=== PATIENT | male | born 1970 | race Caucasian/White ===

== ENCOUNTER 2016-11-19 16:39 | Inpatient (IN) | payer BC, MEDICARE ==
[2016-11-19] MEDS ORDERED: Nitroglycerin TAB 0.4 MG* 0.4 MG TAB SL PRN (18:20)
[2016-11-19] MEDS ORDERED: Morphine INJ* 4 MG/ML 1 ML SYRINGE IV ONE (18:20)
[2016-11-19] MEDS ORDERED: NS 0.9% 1000 ML* 1,000 ML IV ONE (18:20)
[2016-11-19] MEDS ORDERED: Labetalol IV* 5 MG/ML 20 ML VIAL IV PUSH ONE (18:20)
[2016-11-19] MEDS ORDERED: Labetalol IV* 5 MG/ML 20 ML VIAL ONE (18:25)
[2016-11-19 18:37] LABS: Hematocrit 53 % (42-52); Hemoglobin 17.9 g/dl (14.0-18.0); Mean Corpuscular HGB Conc 34 g/dl (31-36); Mean Corpuscular Hemoglobin 29 pg (27-31); Mean Corpuscular Volume 86 fL (80-94); Mean Platelet Volume 11 um3 (7.4-10.4); Red Blood Count 6.14 10^6/ul (4.0-5.4); Red Cell Distribution Width 14 % (10.5-15); White Blood Count 13.2 10^3/ul (3.5-10.8)
[2016-11-19 18:45] LABS: BUN/Creatinine Ratio 7.4 (8-20); Calcium 9.5 mg/dL (8.6-10.3); EGFR African American 93.9 (>60); Globulin 3.1 g/dL (2-4); Magnesium 2.1 mg/dL (1.9-2.7); Potassium 4.1 mmol/L (3.5-5.0); Total Bilirubin 0.7 mg/dL (0.2-1.0); Total Protein 8.1 g/dL (6.4-8.9)
[2016-11-19 18:47] LABS: Troponin I 0.01 ng/mL (<0.04)
[2016-11-19] MEDS ORDERED: Iohexol 350* (CONTRAST) 500 ML MDV IV ONE ×2 (18:51→18:58)
[2016-11-19 18:57] LABS: T4 5.75 mcg/mL (6.09-12.23)
[2016-11-19 18:58] LABS: TSH (Thyroid Stimulating Horm) 1.55 mcIU/mL (0.34-5.60)
--- NOTE | 2016-11-19 19:35 | RAD ---
Indication: Chest pain, hypertension. Single frontal view of the chest performed at 1835 hours was reviewed. Comparison is made with previous exam dated January 04, 2013. No mediastinal shift is noted. Heart is of normal size and configuration. Lung randall appear clear.] Neurostimulator leads are in place. IMPRESSION: NO ACTIVE CARDIOPULMONARY DISEASE IS NOTED.
[2016-11-19] MEDS ORDERED: hydrALAZINE IV* 20 MG/ML VIAL IV SLOW PU ONE ×3 (19:51→23:15)
[2016-11-19] MEDS ORDERED: hydrALAZINE IV* 20 MG/ML VIAL ONE (19:52)
--- NOTE | 2016-11-19 20:13 | RAD ---
Indication: Hypertension, headache. CT of the brain was performed without IV contrast. Ventricular structures are midline. No midline shift is noted. The extra-axial spaces are unremarkable. There is no evidence of intracranial mass or hemorrhage. No other high or low density lesions are identified. Mastoid air cells and paranasal sinuses are otherwise unremarkable. IMPRESSION: No intracranial mass or hemorrhage is present
--- NOTE | 2016-11-19 20:26 | RAD ---
Indication: Headaches, hypertension, evaluate for hemorrhage and aneurysm. Contrast: Administered 80.0 ml of OMNIPAQUE 350 mgi/ml CTA of the neck was performed after IV contrast administration. CTA of the head was performed. Coronal and sagittal as well as 3-D reconstructed images were obtained. There is mild distention of the ascending aorta. Origins of the great vessels are unremarkable. Tortuous common carotid arteries are noted bilaterally. No evidence of intimal wall thickening. The internal carotid arteries are normal bilaterally. No evidence of carotid artery dissection noted. The vertebral arteries demonstrate no evidence for vertebral artery dissection. Basilar artery is unremarkable. Intracranial circulation demonstrates no aneurysmal dilatation. Normal bifurcation of the middle and anterior screw artery is noted. The trifurcation of the middle cerebral artery are also intact with no evidence of aneurysmal dilatation. Basilar artery and posterior cerebral arteries are unremarkable. Soft tissues of the neck demonstrates scattered level 2 lymph nodes bilaterally. No other masses are noted. The parotid glands and submandibular glands are grossly unremarkable. Inferior thyroid lobes are unremarkable. The lung apices are unremarkable. Degenerative disc disease is noted in the cervical spine at C5-C6 and C6-C7. IMPRESSION: NO EVIDENCE OF CAROTID ARTERY OR VERTEBRAL ARTERY DISSECTION. INTRACRANIAL CIRCULATION DEMONSTRATES NO EVIDENCE OF BRANCH OCCLUSION OR ANEURYSMAL DILATATION. DEGENERATIVE DISC DISEASE OF THE CERVICAL SPINE IS NOTED WITH SCATTERED LEVEL 2 LYMPH NODES.
--- NOTE | 2016-11-19 20:31 | RAD ---
Indication: Evaluate for thoracic abdominal aortic aneurysm. CTA chest demonstrates asymmetry aorta demonstrates mild ectasia with maximum diameter descending aorta measuring 4.3 cm by 4.2 cm. At the level of the pulmonary artery on the right. No evidence of thoracic aortic dissection. No evidence of hilar adenopathy. Inferior thyroid lobes are unremarkable The trachea and major bronchi are patent. No evidence of fluid, nodules or masses. No evidence of alveolar consolidation CTA of the abdominal aorta demonstrates celiac axis and superior mesenteric artery are unremarkable. Renal arteries are patent bilaterally. No evidence of abdominal aortic aneurysm. Common iliac arteries are patent with no evidence of aneurysmal dilatation. IMPRESSION: NO EVIDENCE OF THORACIC AORTIC ANEURYSM IS NOTED. NO EVIDENCE OF THORACIC AORTIC DISSECTION IS NOTED. THERE IS DILATATION OF THE ASCENDING AORTA MEASURING 4.3 X 4.2 CM AT THE LEVEL OF THE RIGHT PULMONARY ARTERY. NO EVIDENCE OF ABDOMINAL AORTIC ANEURYSM,
--- NOTE | 2016-11-19 20:42 | RAD ---
Indication: Crohn's disease, abdominal pain., Contrast: CT of the abdomen and pelvis was performed after IV contrast administration. Coronal and sagittal reconstructed images were obtained. Lung bases demonstrate no pleural fluid, nodules or masses. Heart is of normal size without evidence of pericardial effusion. The liver is normal in size. It is diffusely decreased in density consistent with hepatic steatosis. The gallbladder demonstrates no calcified gallstones. No evidence of wall thickening or pericholecystic fluid or calcified gallstones are identified. Common duct is not dilated. The pancreas demonstrates no mass or pancreatic duct dilatation. The spleen is mildly enlarged measuring up to 14 cm. No adrenal lesions are noted. The kidneys demonstrate symmetric nephrograms without focal masses or hydronephrosis. Aorta and inferior vena cava are unremarkable. CT of the pelvis demonstrates no retroperitoneal or pelvic lymphadenopathy. The colon is filled with stool. Patient is status post right hemicolectomy. Surgical clips are noted in the region of the hepatic flexure. Focal areas of small bowel thickening is noted in the left lower quadrant which are nonspecific. I cannot totally exclude recurrent disease. IMPRESSION: HEPATIC STEATOSIS. POSTOPERATIVE CHANGES OF THE RIGHT COLON. FOCAL AREAS OF MUCOSAL THICKENING IN THE LEFT LOWER QUADRANT IN THE LEFT MID ABDOMEN WHICH IS NONSPECIFIC. I CANNOT TOTALLY EXCLUDE AREAS OF INFLAMMATORY BOWEL DISEASE. MILD SPLENOMEGALY IS PRESENT.
[2016-11-19] MEDS ORDERED: cloNIDine TAB* 0.1 MG PO ONE (20:52)
[2016-11-19] MEDS ORDERED: Morphine INJ* 2 MG/ML 1 ML SYRINGE IV ONE (21:35)
[2016-11-19] MEDS ORDERED: fentaNYL PATCH 25 MCG/HR TRANSDERM SCH (23:45)
[2016-11-20] MEDS: oxyCODONE/Acetamin 5/325 MG* TAB PO PRN ×5 (02:03→22:04)
--- NOTE | 2016-11-20 02:05 | HP ---
HISTORY AND PHYSICAL: DATE OF ADMISSION: 11/19/16 CHIEF COMPLAINT: Pain. HISTORY OF PRESENT ILLNESS: The patient is a 46-year-old gentleman who suffers from chronic pain and was on fentanyl patches up until not too long ago, who presents today with diffuse pain all over. He also has pain in his abdomen. It goes to his back, and he was concerned he might have recurrence of pancreatitis. He has had to taper off his pain meds over the last month because he recently lost his 's insurance as he is getting from her. He also feels like this pain in the back of his neck with some swollen lymph nodes there as well. He has been feeling weak of late. Also has some black tarry stools he noted but today they were normal color, but they were diarrhea. Of note, he came to the ER with a very high blood pressure and diastolics in the 140s. He did receive labetalol and hydralazine and it has come down to some degree. PAST MEDICAL HISTORY: Significant for Crohn's disease for which he is not currently receiving any medication, but used to be on Remicade and Pentasa on and off for years. Hypertension, recurrent pancreatitis, reflex sympathetic dystrophy. PAST SURGICAL HISTORY: Significant for appendectomy and shoulder surgery. CURRENT MEDICATIONS: He is taking none. ALLERGIES: He has an allergy/adverse reaction to Toradol and Compazine. FAMILY HISTORY: Reviewed, noncontributory. SOCIAL HISTORY: No tobacco, no alcohol, no recreational drug use. He is on disability. His sister, Cristofer Mendez, is his healthcare proxy. REVIEW OF SYSTEMS: A 14-point review of systems was completed with the patient. All pertinent positives and negatives are in the history of present illness, otherwise it is negative. PHYSICAL EXAMINATION GENERAL: A pleasant gentleman, lying in bed, in no acute distress. VITAL SIGNS: Heart rate 111 beats per minute, respiratory rate 12 breaths per minute, pulse ox 97%, blood pressure 135/122, temperature 99.1 degrees. HEENT: Normocephalic, atraumatic. Pupils equal, round, and reactive to light. Moist mucous membranes. NECK: Supple. No JVD, bruits, palpable thyroid, or lymphadenopathy. CHEST: Clear to auscultation and percussion bilaterally. CARDIOVASCULAR: S1, S2 appreciated. Regular rate and rhythm. ABDOMEN: Positive bowel sounds in all 4 quadrants. Soft, nontender, nondistended. EXTREMITIES: No cyanosis, clubbing, or edema. +2 peripheral pulses bilaterally. NEURO: Alert and oriented x3. Moves all extremities. SKIN: No rashes or abnormalities. DIAGNOSTIC STUDIES/LAB DATA: White count 13.2, hemoglobin , hematocrit 53 , platelets are 230. Sodium 136, potassium 4.1, chloride 103, CO2 22. BUN 8, creatinine 1.08, glucose is 107. D-dimer is less than 200. Brain CT, no intracranial mass or hemorrhage is present. Head CTA, no evidence of carotid artery or vertebral artery dissection. Intracranial circulation demonstrates no evidence of branch occlusion or aneurysmal dilation. Degenerative disk disease of the cervical spine is noted with scattered level [address] of the chest, abdomen and pelvis, no evidence of thoracic aortic aneurysms noted. No evidence of thoracic aortic dissection is noted. There is dilatation of the descending aorta measuring 4.3 x 4.2 , no evidence of abdominal aortic aneurysm. Chest x-ray was interpreted as no active cardiopulmonary disease is noted. EKG shows sinus tachycardia, 136 beats per minute, normal axis, no acute ST-T wave changes. Abdominal pelvic CT shows hepatic steatosis, postoperative changes of the right colon, focal areas of mucosal thickened left lower quadrant of left abdomen, which was not significant and cannot exclude areas of inflammatory bowel disease , mild splenomegaly is present. ASSESSMENT AND PLAN: 1. Diffuse pain including some abdominal pain. I will check a lipase, but I do not think he has pancreatitis at this time. He has been off his chronic pain meds. I will just start him back on some fentanyl patch 25 mcg and Percocet p.r.n. and see if this helps. 2. Hypertensive urgency. His diastolic was quite high. It is better. I will start him on amlodipine, lisinopril p.o., hydralazine p.r.n. and she will be discharged on some p.o. antihypertensives. 3. Crohn's disease. Quiescent. No treatment as of now. Monitor. 4. FEN. Regular diet. 5. DVT prophylaxis. Heparin subcu. 6. The patient is a full code. TIME SPENT: Over 75 minutes were spent on this H and P, more than 40 minutes of which was spent in direct [id number] contact with the patient in evaluation , physical exam, counseling and coordination of care. [id number]/[facility] #: [id number] [place]YR[place]
--- NOTE | 2016-11-20 02:08 | ED ---
Tomas Pop Adam, scribed for Vance Nevarez on 11/19/16 at 1955 . Progress - Progress Note Progress Note: This patient was signed out to me by Dr. Marin at 19:00, pending results of Head CTA, Brain CT, Chest/Abdomen/Pelvis CTA, Abdomen/Pelvis CT, and Chest X- Ray. CHEST X-RAY - IMPRESSION: NO ACTIVE CARDIOPULMONARY DISEASE IS NOTED. HEAD CTA - IMPRESSION: NO EVIDENCE OF CAROTID ARTERY OR VERTEBRAL ARTERY DISSECTION. INTRACRANIAL CIRCULATION DEMONSTRATES NO EVIDENCE OF BRANCH OCCLUSION OR ANEURYSMAL DILATATION. DEGENERATIVE DISC DISEASE OF THE CERVICAL SPINE IS NOTED WITH SCATTERED LEVEL [address] - IMPRESSION: NO INTRACRANIAL MASS OR HEMORRHAGE IS PRESENT. CHEST/ABDOMEN/PELVIS CTA - IMPRESSION: NO EVIDENCE OF THORACIC AORTIC ANEURYSM IS NOTED. NO EVIDENCE OF THORACIC AORTIC DISSECTION IS NOTED. THERE IS DILATATION OF THE ASCENDING AORTA MEASURING 4.3 X 4.2 CM AT THE LEVEL OF THE RIGHT PULMONARY ARTERY. NO EVIDENCE OF ABDOMINAL AORTIC ANEURYSM ABDOMEN/PELVIS CT - IMPRESSION: HEPATIC STEATOSIS. POSTOPERATIVE CHANGES OF THE RIGHT COLON. FOCAL AREAS OF MUCOSAL THICKENING IN THE LEFT LOWER QUADRANT IN THE LEFT MID ABDOMEN WHICH IS NONSPECIFIC. I CANNOT TOTALLY EXCLUDE AREAS OF INFLAMMATORY BOWEL DISEASE. MILD SPLENOMEGALY IS PRESENT. Patient was given IV hydralazine x 2 and his BP is still elevated. I discussed care of patient with Dr. Coronel at approximately 20:30. He accepts admission of the patient. Course/Dx - Diagnoses Provider Diagnoses: Malignant hypertension - Critical Care Time Critical Care Time: 30-74 min - 30 minutes The documentation as recorded by the Tomas wren Adam accurately reflects the service I personally performed and the decisions made by me, Vance Nevarez.
[2016-11-20] MEDS: Lisinopril TAB* 10 MG PO SCH ×2 (02:43→15:08)
[2016-11-20] MEDS: amLODIPine TAB* 5 MG PO SCH ×2 (02:43→15:07)
[2016-11-20] MEDS: Heparin VIAL(*) 5000 UNITS/ML VIAL (FIVE THOUSAND) SUBCUT SCH ×3 (05:58→21:29)
[2016-11-20] MEDS: fentaNYL Patch Check Q Shift 1 NOTE SCH ×2 (07:26→19:20)
[2016-11-20] MEDS ORDERED: NS 0.9% 1000 ML* 1,000 ML IV SCH (14:00)
--- NOTE | 2016-11-20 14:26 | PN ---
Subjective Date of Service: 11/20/16 Interval History: Mr. Venegas reports multiple complaints today - he feels "a little better today" but continues to c/o of abdominal pain, upper chest wall pain worse when he takes a deep breath, neck pain reporting "swollen lymph nodes" Mild sore throat. No rhinorrhea or nasal congestion. He reports his skin over his abdomen is "super sensitive" which is his baseline. He reports "sweats at night" for the past 4 days but no chills or fevers. He reports he had a UTI last month with blood in his urine and burning with urination, but was never tested or treated for it because he couldn't afford to be seen or be put on medications, reporting he drank lots of cranberry juice and water and it went away. He also reports 3-4 stools a day both formed and diarrhea which is his baseline. He reports no stool today. No specific abdominal pain. Reports good appetite but he "could feel the food moving through me" reporting discomfort. He denies fever, nausea or vomiting. No dysuria or hematuria. Objective Active Medications: Amlodipine Besylate (Norvasc Tab*) 5 mg PO DAILY COUNT INCLUDES THE [facility] Last Admin: 11/20/16 02:43 Dose: 5 mg Fentanyl (Duragesic Patch 25 Mcg/Hr*) 25 mcg TRANSDERM Q72H COUNT INCLUDES THE [facility] Last Admin: 11/20/16 02:35 Dose: 25 mcg Heparin Sodium (Porcine) (Heparin Vial(*)) 5,000 units SUBCUT Q8HR COUNT INCLUDES THE [facility] Last Admin: 11/20/16 05:58 Dose: 5,000 units Sodium Chloride (Ns 0.9% 1000 Ml*) 1,000 mls @ 125 mls/hr IV PER RATE COUNT INCLUDES THE [facility] Stop: 11/20/16 21:59 Lisinopril (Prinivil Tab*) 10 mg PO DAILY COUNT INCLUDES THE [facility] Last Admin: 11/20/16 02:43 Dose: 10 mg Oxycodone/Acetaminophen (Percocet 5/325 Tab*) 1 tab PO Q4H PRN PRN Reason: PAIN Last Admin: 11/20/16 10:55 Dose: 1 tab Pharmacy Profile Note (Fentanyl Patch Check Q Shift) 1 note N/A 0700,1900 COUNT INCLUDES THE [facility] Last Admin: 11/20/16 07:26 Dose: 1 note Vital Signs 11/20/16 11/20/16 11/20/16 00:00 00:01 00:21 Temperature Pulse Rate 103 104 101 Respiratory 15 14 19 Rate Blood Pressure 127/88 125/96 (mmHg) O2 Sat by Pulse 96 97 96 Oximetry 11/20/16 11/20/16 11/20/16 00:30 01:48 01:55 Temperature 98.4 F 98.4 F Pulse Rate 100 93 93 Respiratory 18 16 16 Rate Blood Pressure 127/83 144/96 144/96 (mmHg) O2 Sat by Pulse 96 98 98 Oximetry 11/20/16 11/20/16 11/20/16 02:03 02:35 03:25 Temperature Pulse Rate Respiratory 16 16 16 Rate Blood Pressure (mmHg) O2 Sat by Pulse Oximetry 11/20/16 11/20/16 11/20/16 04:03 04:13 06:07 Temperature 98.8 F Pulse Rate 113 Respiratory 16 16 16 Rate Blood Pressure 126/98 (mmHg) O2 Sat by Pulse 97 Oximetry 11/20/16 11/20/16 11/20/16 06:11 07:36 08:07 Temperature 98.9 F 98.8 F Pulse Rate 115 110 Respiratory 20 16 18 Rate Blood Pressure 107/81 127/71 (mmHg) O2 Sat by Pulse 95 93 Oximetry 11/20/16 11/20/16 10:55 12:19 Temperature 99.4 F Pulse Rate 103 Respiratory 18 16 Rate Blood Pressure 129/83 (mmHg) O2 Sat by Pulse 98 Oximetry Oxygen Devices in Use Now: None Appearance: 46 yo male AA+Ox3 sitting up in bed appearing comfortable in NAD. Eyes: No Scleral Icterus, PERRLA Ears/Nose/Mouth/Throat: NL Teeth, Lips, Gums, Clear Oropharnyx, Mucous Membranes Moist, - - no erythema or exudate noted on exam Neck: NL Appearance and Movements; NL JVP Respiratory: Symmetrical Chest Expansion and Respiratory Effort, Clear to Auscultation Cardiovascular: NL Sounds; No Murmurs; No JVD, RRR, No Edema, - - reproducible chest wall pain with palpation Abdominal: - - distended, obese, soft, skin is hypersensitive to touch, no tenderness to deep palpation. Lymphatic: No Cervical Adenopathy Extremities: No Edema, No Clubbing, Cyanosis Skin: No Rash or Ulcers, No Nodules or Sclerosis Neurological: Alert and Oriented x 3, NL Gait, NL Muscle Strength and Tone Lines/Tubes/Other Access: Clean, Dry and Intact Peripheral IV Nutrition: Taking PO's Result Diagrams: 11/20/16 14:25 11/20/16 14:26 Microbiology and Other Data: Microbiology 11/20/16 01:00 Group A Streptococcus Rapid Screen - Final Throat Specimen received for Rapid Strep A Molecular testing 11/20/16 01:00 Influenza Types A,B Antigen (CHERRY) - Final Nasopharyngeal Specimen received for Influenza A/B Molecular testing Assess/Plan/Problems-Billing Assessment: 46 yo male with a PMH of chronic pain, Crohns Disease, HTN, reflex sympathetic dystrophy, multiple abdominal surgeries who presented to the ED on with c/o pain, found to have hypertension urgency - Patient Problems (1) acute on chronic pain Comment: Acute on Chronic pain. Hx of reflex sympathetic dystrophy. Multifactorial? Possible viral illness and withdraw from opioids with RSD flare? Noted scattered lymph nodes on CT head/neck. Pt recently off Fentanyl patches due to that he is not able to afford them - Fent patch restarted on admission. Better pain control but continues to c/o generalized abdominal pain, upper chest wall, back pain. Extensive imaging showing no acute processes, possible IBD which he does have a hx of crohns. CTA Head/Neck/Chest/Abdomen obtained. will add on clonidine as it is recommended for RSD and will help control BP social work consult for insurance purposes send urinalysis (2) Hypertensive urgency Comment: - patient reports hx of HTN 8 years ago but has been off medication since. I question his compliance with PCP follow ups. - Better control - continue Norvasc, with addition of clonidine (3) Crohns disease Comment: - currently not on medication. symptoms seem failry well controlled. Should f/u as outpt (4) Hx of pancreatitis Comment: Hx of necortizing pancreatitis 2011; low suspicion for pancreatitis, but will check lipase (5) DVT prophylaxis Comment: HSQ (6) Full code status Status and Disposition: OBV. Possible DC to home tomorrow if blood pressure is better controlled. Awaiting social work consult. Patient needs insurance to cover medications.
[2016-11-20 14:32] LABS: Hematocrit 46 % (42-52); Hemoglobin 15.6 g/dl (14.0-18.0); Mean Corpuscular HGB Conc 34 g/dl (31-36); Mean Corpuscular Hemoglobin 29 pg (27-31); Mean Corpuscular Volume 86 fL (80-94); Mean Platelet Volume 11 um3 (7.4-10.4); Red Blood Count 5.31 10^6/ul (4.0-5.4); Red Cell Distribution Width 15 % (10.5-15); White Blood Count 8.8 10^3/ul (3.5-10.8)
[2016-11-20] MEDS ORDERED: amLODIPine TAB* 5 MG PO ONE ×2 (14:40→16:00)
[2016-11-20 14:47] LABS: BUN/Creatinine Ratio 9.3 (8-20); Calcium 8.9 mg/dL (8.6-10.3); EGFR African American 84.7 (>60); EGFR Non-African American 65.9 (>60)
[2016-11-20] MEDS ORDERED: cloNIDine TAB* 0.1 MG PO ONE (14:52)
[2016-11-20] MEDS: diPHENhydraMINE PO* 50 MG PO PRN (21:28)
[2016-11-21] MEDS: Heparin VIAL(*) 5000 UNITS/ML VIAL (FIVE THOUSAND) SUBCUT SCH ×3 (06:06→21:56)
[2016-11-21 06:27] LABS: Hematocrit 41 % (42-52); Hemoglobin 13.9 g/dl (14.0-18.0); Mean Corpuscular HGB Conc 34 g/dl (31-36); Mean Corpuscular Hemoglobin 30 pg (27-31); Mean Corpuscular Volume 87 fL (80-94); Mean Platelet Volume 11 um3 (7.4-10.4); Red Cell Distribution Width 15 % (10.5-15); White Blood Count 7.3 10^3/ul (3.5-10.8)
[2016-11-21 06:35] LABS: BUN/Creatinine Ratio 10.5 (8-20); Calcium 8.4 mg/dL (8.6-10.3); EGFR Non-African American 62.2 (>60); Potassium 3.9 mmol/L (3.5-5.0)
[2016-11-21] MEDS: fentaNYL Patch Check Q Shift 1 NOTE SCH ×2 (06:56→18:56)
[2016-11-21] MEDS: Lisinopril TAB* 10 MG PO SCH (08:27)
[2016-11-21] MEDS: cloNIDine TAB* 0.1 MG PO SCH (08:28)
[2016-11-21] MEDS: oxyCODONE/Acetamin 5/325 MG* TAB PO PRN ×4 (08:28→21:33)
[2016-11-21 08:30] LABS: Urine Bilirubin Negative (Negative); Urine Glucose Negative (Negative); Urine Nitrite Negative (Negative)
[2016-11-21] MEDS ORDERED: amLODIPine TAB* 5 MG PO SCH (09:00)
--- NOTE | 2016-11-21 11:27 | PN ---
Subjective Date of Service: 11/21/16 Interval History: Patient seen and examined at bedside. Pt states that he continues to have abdominal and right UE pain. He now has bilateral lower back pain. Denies fever , chills, shortness of breath, chest discomfort, N/V/D. Pt states that that he feels "sweaty". Pt states that he follows with a pain clinic for his chronic pain, but hasn't been there in awhile due to insurance issues. Family History: Unchanged from Admission Social History: Unchanged from Admission Past Medical History: Unchanged from Admission Objective Active Medications: Amlodipine Besylate (Norvasc Tab*) 5 mg PO DAILY NEREIDA Clonidine HCl (Catapres Tab*) 0.1 mg PO DAILY NEREIDA Diphenhydramine HCl (Benadryl Po*) 50 mg PO BEDTIME PRN Reason: SLEEP Fentanyl (Duragesic Patch 25 Mcg/Hr*) 25 mcg TRANSDERM Q72H NEREIDA Heparin Sodium (Porcine) (Heparin Vial(*)) 5,000 units SUBCUT Q8HR NEREIDA Lisinopril (Prinivil Tab*) 10 mg PO DAILY NEREIDA Oxycodone/Acetaminophen (Percocet 5/325 Tab*) 1 tab PO Q4H PRN Reason: PAIN Pharmacy Profile Note (Fentanyl Patch Check Q Shift) 1 note N/A 0700,1900 [facility] Vital Signs 11/20/16 11/20/16 11/20/16 12:19 12:55 14:19 Temperature 99.4 F Pulse Rate 103 118 Respiratory 16 18 Rate Blood Pressure 129/83 127/108 (mmHg) O2 Sat by Pulse 98 99 Oximetry 11/20/16 11/20/16 11/20/16 15:08 15:28 17:08 Temperature 97.2 F Pulse Rate 109 Respiratory 18 20 18 Rate Blood Pressure 118/80 (mmHg) O2 Sat by Pulse 96 Oximetry 11/20/16 11/20/16 11/20/16 17:48 19:39 21:28 Temperature 98.8 F Pulse Rate 104 107 Respiratory 18 Rate Blood Pressure 127/80 133/97 (mmHg) O2 Sat by Pulse 96 Oximetry 11/20/16 11/20/16 11/20/16 21:47 22:04 22:55 Temperature Pulse Rate 103 Respiratory 18 18 Rate Blood Pressure 108/87 (mmHg) O2 Sat by Pulse Oximetry 11/20/16 11/21/16 11/21/16 23:28 00:01 00:04 Temperature 98.4 F Pulse Rate 101 Respiratory 18 14 18 Rate Blood Pressure 121/67 (mmHg) O2 Sat by Pulse 96 Oximetry 11/21/16 11/21/16 11/21/16 02:09 04:00 05:56 Temperature 98.8 F Pulse Rate 98 95 95 Respiratory 14 Rate Blood Pressure 115/83 118/79 119/91 (mmHg) O2 Sat by Pulse 96 98 97 Oximetry 11/21/16 11/21/16 07:43 08:28 Temperature 98.3 F Pulse Rate 96 Respiratory 18 18 Rate Blood Pressure 144/90 (mmHg) O2 Sat by Pulse 99 Oximetry Oxygen Devices in Use Now: None Appearance: NAD, laying in bed Eyes: No Scleral Icterus, PERRLA Ears/Nose/Mouth/Throat: NL Teeth, Lips, Gums, Mucous Membranes Moist Neck: NL Appearance and Movements; NL JVP, Trachea Midline Respiratory: Symmetrical Chest Expansion and Respiratory Effort, Clear to Auscultation Cardiovascular: NL Sounds; No Murmurs; No JVD, RRR Abdominal: NL Sounds; No Tenderness; No Distention Extremities: - - Swelling in right UE Skin: No Rash or Ulcers Neurological: Alert and Oriented x 3, NL Muscle Strength and Tone Lines/Tubes/Other Access: Clean, Dry and Intact Peripheral IV - site benign Nutrition: Taking PO's Result Diagrams: 11/21/16 06:10 11/21/16 06:10 Microbiology and Other Data: Microbiology 11/20/16 01:00 Group A Streptococcus Rapid Screen - Final Throat Specimen received for Rapid Strep A Molecular testing 11/20/16 01:00 Influenza Types A,B Antigen (CHERRY) - Final Nasopharyngeal Specimen received for Influenza A/B Molecular testing Assess/Plan/Problems-Billing Assessment: Mr. Venegas is a 46 yo male with a PMH of chronic pain, Crohns Disease, HTN, reflex sympathetic dystrophy, multiple abdominal surgeries who presented to the ED on 11/19 with c/o pain, found to have hypertension urgency - Patient Problems (1) Acute kidney injury Code(s): N17.9 - ACUTE KIDNEY FAILURE, UNSPECIFIED SNOMED Code(s): 39023820 Comment: - No improvement after IVF overnight - Will stop lisinopril - Avoid nephrotoxic agents - Check FeNA (2) acute on chronic pain Comment: - Acute on Chronic pain. Hx of reflex sympathetic dystrophy. - Multifactorial? Possible viral illness and withdraw from opioids with RSD flare? - Noted scattered lymph nodes on CT head/neck. - Pt recently off Fentanyl patches due to that he is not able to afford them - Fent patch restarted on admission. Better pain control but continues to c/o generalized abdominal pain, upper chest wall, back pain. - Extensive imaging showing no acute processes, possible IBD which he does have a hx of crohns. - CTA Head/Neck/Chest/Abdomen obtained. - Continue clonidine as it is recommended for RSD and will help control BP - Social work consult for insurance purposes (3) Hypertensive urgency Code(s): I16.0 - HYPERTENSIVE URGENCY SNOMED Code(s): 424272235 Comment: - Patient reports hx of HTN 8 years ago but has been off medication since. I question his compliance with PCP follow ups. - Better control - Continue Norvasc, with addition of clonidine (4) Crohns disease Code(s): K50.90 - CROHN'S DISEASE, UNSPECIFIED, WITHOUT COMPLICATIONS SNOMED Code(s): 56619047 Comment: - Currently not on medication. - Symptoms seem failry well controlled. - Should f/u as outpt (5) Hx of pancreatitis Code(s): Z87.19 - PERSONAL HISTORY OF OTHER DISEASES OF THE DIGESTIVE SYSTEM SNOMED Code(s): 23135381472331 Comment: - Hx of necortizing pancreatitis 2011; low suspicion for pancreatitis - Lipase 20 (6) DVT prophylaxis Code(s): KTM2567 - SNOMED Code(s): 813431297 Comment: - SQ Heparin (7) Full code status Code(s): Z78.9 - OTHER SPECIFIED HEALTH STATUS SNOMED Code(s): 799716128 Status and Disposition: OBV. Possible DC to home later today. Awaiting social work consult. Patient needs insurance to cover medications.
[2016-11-21 12:25] LABS: Renal Sodium Excretion 0.46 %
[2016-11-21] MEDS ORDERED: amLODIPine TAB* 5 MG PO ONE (13:42)
[2016-11-21] MEDS: NS 0.9% 1000 ML* 1,000 ML IV SCH (14:34)
[2016-11-21] MEDS ORDERED: fentaNYL PATCH 50 MCG/HR TRANSDERM SCH (20:00)
[2016-11-21] MEDS: diPHENhydraMINE PO* 50 MG PO PRN (21:33)
[2016-11-22] MEDS: NS 0.9% 1000 ML* 1,000 ML IV SCH (02:16)
[2016-11-22] MEDS: oxyCODONE/Acetamin 5/325 MG* TAB PO PRN ×2 (04:02→08:56)
[2016-11-22] MEDS: Heparin VIAL(*) 5000 UNITS/ML VIAL (FIVE THOUSAND) SUBCUT SCH (05:46)
[2016-11-22 07:13] LABS: BUN/Creatinine Ratio 9.7 (8-20); Calcium 8.5 mg/dL (8.6-10.3); EGFR African American 89.1 (>60); EGFR Non-African American 69.3 (>60); Potassium 4.1 mmol/L (3.5-5.0)
[2016-11-22 08:45] VITALS: BP 144/103
[2016-11-22] MEDS: fentaNYL Patch Check Q Shift 1 NOTE SCH (08:51)
[2016-11-22] MEDS: cloNIDine TAB* 0.1 MG PO SCH (08:56)
[2016-11-22] MEDS ORDERED: amLODIPine TAB* 5 MG PO SCH ×2 (09:00)
[2016-11-22] MEDS ORDERED: Lisinopril TAB* 10 MG PO SCH (10:00)
--- NOTE | 2016-11-22 10:30 | PN ---
Subjective Date of Service: 11/22/16 Interval History: Patient seen and examined at bedside. Pt states that he is feeling better today , but continues to have abdominal pain at his incisional hernia. Denies fever, chills, shortness of breath, chest discomfort, V/D. Pt also states he has mild nausea today. Reports that his right arm swelling from an IV infiltrate is improved. Family History: Unchanged from Admission Social History: Unchanged from Admission Past Medical History: Unchanged from Admission Objective Active Medications: Amlodipine Besylate (Norvasc Tab*) 5 mg PO DAILY NEREIDA Clonidine HCl (Catapres Tab*) 0.1 mg PO DAILY NEREIDA Diphenhydramine HCl (Benadryl Po*) 50 mg PO BEDTIME PRN Reason: SLEEP Fentanyl (Duragesic Patch 50 Mcg/Hr*) 50 mcg TRANSDERM Q72H NEREIDA Heparin Sodium (Porcine) (Heparin Vial(*)) 5,000 units SUBCUT Q8HR NEREIDA Sodium Chloride (Ns 0.9% 1000 Ml*) 1,000 mls @ 100 mls/hr IV PER RATE NEREIDA Lisinopril (Prinivil Tab*) 10 mg PO DAILY NEREIDA Oxycodone/Acetaminophen (Percocet 5/325 Tab*) 1 tab PO Q4H PRN Reason: PAIN Pharmacy Profile Note (Fentanyl Patch Check Q Shift) 1 note N/A 0700,1900 [facility] Vital Signs 11/21/16 11/21/16 11/21/16 14:23 15:20 17:09 Temperature 98.3 F Pulse Rate 102 Respiratory 14 16 14 Rate Blood Pressure 145/90 (mmHg) O2 Sat by Pulse 96 Oximetry 11/21/16 11/21/16 11/21/16 19:09 19:49 20:35 Temperature 98.6 F Pulse Rate 91 Respiratory 18 16 18 Rate Blood Pressure 134/100 (mmHg) O2 Sat by Pulse 95 Oximetry 11/21/16 11/22/16 11/22/16 23:35 03:54 04:02 Temperature 97.7 F 98.9 F Pulse Rate 99 96 Respiratory 16 16 18 Rate Blood Pressure 125/94 134/93 (mmHg) O2 Sat by Pulse 97 97 Oximetry 11/22/16 11/22/16 11/22/16 07:33 08:00 08:56 Temperature 98.0 F Pulse Rate 95 Respiratory 18 16 16 Rate Blood Pressure 144/103 (mmHg) O2 Sat by Pulse 93 Oximetry Oxygen Devices in Use Now: None Appearance: NAD, laying in bed Ears/Nose/Mouth/Throat: Mucous Membranes Moist Respiratory: Symmetrical Chest Expansion and Respiratory Effort, Clear to Auscultation Cardiovascular: NL Sounds; No Murmurs; No JVD, RRR Abdominal: - - Bowel sounds pressent, reducible incisional hernia on the right side. Extremities: - - Mild edema to right UE Neurological: Alert and Oriented x 3, NL Muscle Strength and Tone Lines/Tubes/Other Access: Clean, Dry and Intact Peripheral IV - site benign Nutrition: Taking PO's Result Diagrams: 11/21/16 06:10 11/22/16 06:11 Microbiology and Other Data: Microbiology 11/20/16 01:00 Group A Streptococcus Rapid Screen - Final Throat Specimen received for Rapid Strep A Molecular testing 11/20/16 01:00 Influenza Types A,B Antigen (CHERRY) - Final Nasopharyngeal Specimen received for Influenza A/B Molecular testing Assess/Plan/Problems-Billing Assessment: Mr. Venegas is a 46 yo male with a PMH of chronic pain, Crohns Disease, HTN, reflex sympathetic dystrophy, multiple abdominal surgeries who presented to the ED on 11/19 with c/o pain, found to have hypertension urgency - Patient Problems (1) acute on chronic pain Comment: - Acute on Chronic pain. Hx of reflex sympathetic dystrophy. - Multifactorial? Possible viral illness and withdraw from opioids with RSD flare? - Noted scattered lymph nodes on CT head/neck. - Pt recently off Fentanyl patches due to that he is not able to afford them - Fent patch restarted on admission. Better pain control but continues to c/o generalized abdominal pain, upper chest wall, back pain. - Extensive imaging showing no acute processes, possible IBD which he does have a hx of crohns. - CTA Head/Neck/Chest/Abdomen obtained. - Continue clonidine as it is recommended for RSD and will help control BP - Social work consult for insurance purposes (2) Acute kidney injury Code(s): N17.9 - ACUTE KIDNEY FAILURE, UNSPECIFIED SNOMED Code(s): 14931584 Comment: - Resolved after IVF - Avoid nephrotoxic agents (3) Hypertensive urgency Code(s): I16.0 - HYPERTENSIVE URGENCY SNOMED Code(s): 106607862 Comment: - Patient reports hx of HTN 8 years ago but has been off medication since. I question his compliance with PCP follow ups. - Better control - Continue Norvasc, lisinopril and clonidine (4) Crohns disease Code(s): K50.90 - CROHN'S DISEASE, UNSPECIFIED, WITHOUT COMPLICATIONS SNOMED Code(s): 45994161 Comment: - Currently not on medication. - Symptoms seem failry well controlled. - Should f/u as outpt (5) Hx of pancreatitis Code(s): Z87.19 - PERSONAL HISTORY OF OTHER DISEASES OF THE DIGESTIVE SYSTEM SNOMED Code(s): 41867142162806 Comment: - Hx of necortizing pancreatitis 2011; low suspicion for pancreatitis - Lipase 20 (6) DVT prophylaxis Code(s): TRI5994 - SNOMED Code(s): 976327091 Comment: - SQ Heparin (7) Full code status Code(s): Z78.9 - OTHER SPECIFIED HEALTH STATUS SNOMED Code(s): 119388786 Status and Disposition: Inpatient. Stable for discharge to home today.
--- NOTE | 2016-11-22 23:05 | DS ---
DISCHARGE SUMMARY: DATE OF ADMISSION: 11/19/16 DATE OF DISCHARGE: 11/22/16 ATTENDING PHYSICIAN: Ulises Coronel MD *(dictated by Garland Cason NP) PRIMARY DIAGNOSES: 1. Hypertensive urgency. 2. Chronic pain. SECONDARY DIAGNOSES: 1. Crohn's disease. 2. Recurrent pancreatitis. 3. Reflex sympathetic dystrophy. STUDIES WHILE IN THE HOSPITAL: 1. Abdomen and pelvis CT on 11/19/16. Radiologist impression: Hepatic steatosis. Postoperative changes of the right colon. Focal areas of mucosal thickening in the left lower quadrant in the left mid abdomen, which is nonspecific. I cannot totally exclude areas of inflammatory bowel disease. Mild splenomegaly is present. 2. Chest x-ray on 11/19/16. Radiologist impression: No active cardiopulmonary disease is noted. 3. Chest, abdomen and pelvis CTA on 11/19/16. Radiologist impression: No evidence of thoracic aortic aneurysm noted. No evidence of thoracic aortic dissection is noted. There is dilation of the ascending aorta measuring 4.3 x 4.2 cm at the level of the right pulmonary artery. No evidence of abdominal aortic aneurysm. 4. Brain CT on 11/19/16. Radiologist impression: No intracranial mass or hemorrhage is present. 5. Head CTA on 11/19/16. Radiologist impression: No evidence for carotid artery or vertebral artery dissection. Intracranial circulation demonstrates no evidence of branch occlusion or aneurysmal dilation. Degenerative disk disease of the cervical spine is noted with scattered level 2 lymph nodes. DISCHARGE MEDICATIONS: New home medications; 1. Lisinopril 10 mg oral daily. 2. Amlodipine 5 mg oral daily. 3. Clonidine 0.1 mg oral daily. 4. Fentanyl patch 50 mcg an hour, apply every 3 days. HISTORY OF PRESENT ILLNESS/HOSPITAL COURSE: Mr. Venegas is a 46-year-old male with past medical history significant for chronic pain who was using fentanyl patches up until a month ago when he lost his insurance coverage. The patient presented to the emergency room with complaints of diffuse all over pain including his abdomen and back. The patient also reports feeling weak with black tarry stools, but with normal stool color on the day of presentation and the patient decided to present to the emergency room for evaluation of his symptoms. While in the emergency room, the patient was found to have very diastolic blood pressures with diastolics in the 140s. He received labetalol and hydralazine with some improvement of his hypertension. The hospitalists were asked to evaluate the patient for admission. While in the hospital, the patient had multiple images including a brain CT that was with no acute findings, head CTA with no acute findings. It was noted in the head CTA that he had scattered level 2 lymph nodes. He had a CTA of his abdomen, chest, and pelvis showing dilation of the descending aorta measuring 4.3 x 4.2. He had a chest x-ray showing no acute cardiopulmonary disease. EKG showing a sinus tachycardia with no acute ST or T-wave changes. The patient had an abdomen CT showing hepatic steatosis, postoperative changes of the right colon, and focal areas of mucosal thickening of the left lower quadrant of the abdomen. The hospitalists were asked to evaluate the patient for admission. During the patient's hospital stay, his blood pressures improved after being started on lisinopril, amlodipine, and clonidine. The patient was initiated back on fentanyl patch 25 mcg. This helped to decrease his pain, but he was also requiring Percocet for better pain control. The patient's fentanyl patch was increased to 50 mcg, which was his last prescription as an outpatient. The patient continues to have generalized abdominal pain that is overall improving. He complains of a right-sided abdominal incision hernia that is reducible. The patient was seen in consultation by social work to assist in getting insurance coverage. The patient initially had a bump in his creatinine after starting lisinopril, this is resolved after IV fluids. Mr. Venegas is stable for discharge to home today. Vital signs are as follows: Temperature is 98.0, heart rate 95, respiratory rate 18. O2 saturation 93% on room air, blood pressure 144/103. DISCHARGE PLAN: Mr. Venegas will be discharged to home. ACTIVITY: As tolerated. DIET: Low-sodium diet. As far as his hypertension, he should be continued on amlodipine 5 mg oral daily and lisinopril 10 mg oral daily, these may be to be further adjusted if the patient continues to have hypertension. The patient was also started on clonidine as it is recommended for reflex sympathetic dystrophy. This will also help with the patient's blood pressure control. As far as the patient's Crohn's disease, he is not currently on medications and the symptoms seemed fairly well controlled. 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 The patient has been asked to return to the emergency room for chest pain or shortness of breath. He should be seen in followup by his primary care provider NIDIA Alamo, in the next week. This is a summarized report of a complex medical history and hospital stay. For further details, please see the entire medical record. TIME SPENT: Time for this discharge was 50 minutes, 25 minutes were spent face- to- face with the patient discussing discharge plans and instructions. CONDITION ON DISCHARGE: Stable. GARLAND CASON NP CC: NIDIA Alamo* [id number]/CPS #: [id number] [facility]sh
== END 2016-11-22 11:55 | disposition home or self-care (01) | DRG 305 ==
LOC: ED 16:39 → MED 23:40 → OBSVTOIN 11-21 14:05
PROVIDERS: ADMIT Internal Medicine; ATTEND Internal Medicine
DX: I16.0 Hypertensive urgency (principal); N17.9 Acute kidney failure, unspecified; R16.1 Splenomegaly, not elsewhere classified; K76.0 Fatty (change of) liver, not elsewhere classified; K50.90 Crohn's disease, unspecified, without complications; G90.50 Complex regional pain syndrome I, unspecified; K43.2 Incisional hernia without obstruction or gangrene; R00.0 Tachycardia, unspecified; R10.9 Unspecified abdominal pain; Z87.19 Personal history of other diseases of the digestive system; I77.819 Aortic ectasia, unspecified site; Z88.6 Allergy status to analgesic agent; Z88.8 Allergy status to other drugs, medicaments and biological substances; I10 Essential (primary) hypertension; M50.30 Other cervical disc degeneration, unspecified cervical region; R11.0 Nausea
CPT/HCPCS: 36415; 70450; 70496; 70498; 71010; 71275; 74174; 74177; 80048; 80053; 81003; 82550; 82553; 82570; 83605; 83690; 83735; 83880; 84300; 84436; 84443; 84484; 85025; 85379; 85610; 85730; 87502; 87651; 93005; A9270-GY; G0378; J0360; J1644; J2270; Q9967

== ENCOUNTER 2017-04-15 11:42 | Observation (INO) | payer MEDICARE ==
[2017-04-15] MEDS ORDERED: Albuterol/Ipratropium NEB.SOL* Albuterol 2.5 MG/Ipratropium 0.5 MG 3 ML INH ONE ×2 (12:27→14:24)
--- NOTE | 2017-04-15 13:17 | RAD ---
Indication: Cough. 2 views of the chest including dual energy PA views are reviewed. Comparison is made with previous exam dated November 19, 2016. No mediastinal shift is noted. Heart is of normal size and configuration. Lung randall are clear. Neurostimulator leads are at T3-T5. IMPRESSION: Overall no changes noted since November 19, 2016 with no evidence of active cardiopulmonary disease.
[2017-04-15] MEDS ORDERED: methylPREDNISolone 125 MG* 2 ML VIAL IV ONE (14:24)
[2017-04-15] MEDS ORDERED: NS 0.9% 1000 ML* 1,000 ML IV ONE (14:24)
[2017-04-15 14:42] LABS: Hematocrit 39 % (42-52); Hemoglobin 13.1 g/dl (14.0-18.0); Mean Corpuscular HGB Conc 34 g/dl (31-36); Mean Corpuscular Hemoglobin 30 pg (27-31); Mean Corpuscular Volume 88 fL (80-94); Mean Platelet Volume 12 um3 (7.4-10.4); Red Blood Count 4.43 10^6/ul (4.0-5.4); Red Cell Distribution Width 13 % (10.5-15); White Blood Count 9.8 10^3/ul (3.5-10.8)
[2017-04-15 15:01] LABS: Albumin 4.6 g/dL (3.2-5.2); BUN/Creatinine Ratio 9.8 (8-20); C Reactive Protein 2.76 mg/L (< 5.00); Calcium 9.7 mg/dL (8.6-10.3); EGFR African American 54.1 (>60); EGFR Non-African American 42.1 (>60); Globulin 2.7 g/dL (2-4); Potassium 3.6 mmol/L (3.5-5.0); Total Protein 7.3 g/dL (6.4-8.9)
[2017-04-15] MEDS ORDERED: Ondansetron INJ* 2 MG/ML VIAL IV ONE (15:28)
[2017-04-15] MEDS ORDERED: guaiFENesin/CODIEN 100MG-10MG* 5 ML UDC PO ONE (17:01)
--- NOTE | 2017-04-15 18:53 | ED ---
Allie Pop Edward, scribed for Dionisio Maier MD on 04/15/17 at 1228 . Respiratory - HPI Summary HPI Summary: 46 y/o male presents to the ED c/o gradual onset non-productive cough starting 02/28/17. The cough is still present. The cough started while the pt was at the [facility]. It is not alleviated by anything. The cough causes the pt to have ABD pain. Associated sx: N/V/D starting two weeks ago. Pt has not been able to keep food down. Denies SOB. PMHx ABD hernia, HTN. - History of Current Complaint Chief Complaint: EDGeneral Stated Complaint: COUGH Time Seen by Provider: 04/15/17 12:17 Hx Obtained From: Patient Onset/Duration: Gradual Onset, Lasting Weeks - 02/28/17 Pain Intensity: 7 Character: Cough (Nonproductive) Sputum Amount: None Aggravating Factor(s): Nothing Alleviating Factor(s): Nothing - Allergy/Home Medications Allergies/Adverse Reactions: Allergies Allergy/AdvReac Type Severity Reaction Status Date / Time Prochlorperazine Allergy Severe Anaphylatic Verified 09/29/15 07:50 [From Compazine] Shock Ketorolac Tromethamine Allergy Unknown unk Verified 09/29/15 07:50 [From Toradol] PMH/Surg Hx/FS Hx/Imm Hx Previously Healthy: No Endocrine/Hematology History: Denies: Hx Anticoagulant Therapy, Hx Diabetes, Hx Thyroid Disease Cardiovascular History: Denies: Hx Hypertension, Hx Pacemaker/ICD Respiratory History: Denies: Hx Asthma, Hx Chronic Obstructive Pulmonary Disease (COPD) GI History: Reports: Hx Crohn's Disease, Hx Obstructive Bowel - bowel resections x 2, Other GI Disorders - bowel resect x 2 r/t blood vessel bursting , pancreatitis History: Denies: Hx Renal Disease Sensory History: Reports: Hx Contacts or Glasses Denies: Hx Hearing Aid Comment Only: Other Sensory Impairments - RDS Opthamlomology History: Reports: Hx Contacts or Glasses Comment Only: Other Sensory Impairments - RDS Neurological History: Denies: Hx Dementia, Hx Seizures Comment Only: Other Neuro Impairments/Disorders - RSD Psychiatric History: Denies: Hx Substance Abuse - Cancer History Cancer Type, 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 Infectious Disease History: No Infectious Disease History: Denies: Hx Hepatitis, Hx Human Immunodeficiency Virus (HIV), Traveled Outside the [place] in Last 30 Days - Family History Known Family History: Positive: Other Family History: Grandfather and father with aortic dissection. - Social History Alcohol Use: None Substance Use Type: Reports: None Smoking Status (MU): Never Smoked Tobacco Review of Systems Constitutional: Negative Eyes: Negative ENT: Negative Cardiovascular: Negative Positive: Cough. Negative: Shortness Of Breath Positive: Abdominal Pain, Vomiting, Diarrhea, Nausea Genitourinary: Negative Musculoskeletal: Negative Skin: Negative Neurological: Negative Psychological: Normal All Other Systems Reviewed And Are Negative: Yes Physical Exam Triage Information Reviewed: Yes Vital Signs On Initial Exam: Initial Vitals Temp Pulse Resp BP Pulse Ox 98.6 F 125 18 118/57 98 04/15/17 11:43 04/15/17 11:43 04/15/17 11:43 04/15/17 11:43 04/15/17 11:43 Vital Signs Reviewed: Yes Appearance: Positive: Well-Appearing, No Pain Distress Skin: Positive: Warm, Skin Color Reflects Adequate Perfusion, Dry Head/Face: Positive: Normal Head/Face Inspection Eyes: Positive: Normal ENT: Positive: Normal ENT inspection Neck: Positive: Supple, Nontender Respiratory/Lung Sounds: Positive: Breath Sounds Present, Wheezes - Expiratory wheezes in all lung randall Cardiovascular: Positive: Tachycardia Abdomen Description: Positive: Nontender, Soft Bowel Sounds: Positive: Present Musculoskeletal: Positive: Normal Neurological: Positive: Normal Psychiatric: Positive: Normal, Affect/Mood Appropriate - [place] Coma Scale Coma Scale Total: 15 Diagnostics - Vital Signs Vital Signs Temp Pulse Resp BP Pulse Ox 04/15/17 12:10 18 04/15/17 11:43 98.6 F 125 18 118/57 98 - Laboratory Lab Results: Lab Results 04/15/17 04/15/17 04/15/17 Range/Units 14:30 14:30 14:30 WBC 9.8 (3.5-10.8) 10^3/ul RBC 4.43 (4.0-5.4) 10^6/ul Hgb 13.1 L (14.0-18.0) g/dl Hct 39 L (42-52) % MCV 88 (80-94) fL MCH 30 (27-31) pg MCHC 34 (31-36) g/dl RDW 13 (10.5-15) % Plt Count 142 L (150-450) 10^3/ul MPV 12 H (7.4-10.4) um3 Neut % (Auto) 77.2 (38-83) % Lymph % (Auto) 13.5 L (25-47) % White % (Auto) 7.3 (1-9) % Eos % (Auto) 1.2 (0-6) % Baso % (Auto) 0.8 (0-2) % Absolute Neuts (auto) 7.6 (1.5-7.7) 10^3/ul Absolute Lymphs (auto) 1.3 (1.0-4.8) 10^3/ul Absolute Monos (auto) 0.7 (0-0.8) 10^3/ul Absolute Eos (auto) 0.1 (0-0.6) 10^3/ul Absolute Basos (auto) 0.1 (0-0.2) 10^3/ul Absolute Nucleated RBC 0 10^3/ul Nucleated RBC % 0 Sodium 141 (133-145) mmol/L Potassium 3.6 (3.5-5.0) mmol/L Chloride 105 (101-111) mmol/L Carbon Dioxide 26 (22-32) mmol/L Anion Gap 10 (2-11) mmol/L BUN 17 (6-24) mg/dL Creatinine 1.74 H (0.67-1.17) mg/dL Est GFR ( Amer) 54.1 (>60) Est GFR (Non-Af Amer) 42.1 (>60) BUN/Creatinine Ratio 9.8 (8-20) Glucose 92 (70-100) mg/dL Lactic Acid (0.5-2.0) mmol/L Calcium 9.7 (8.6-10.3) mg/dL Total Bilirubin 1.00 (0.2-1.0) mg/dL AST 29 (13-39) U/L ALT 33 (7-52) U/L Alkaline Phosphatase 54 (34-104) U/L Troponin I 0.00 (<0.04) ng/mL C-Reactive Protein 2.76 (< 5.00) mg/L B-Natriuretic Peptide 12 ( - 100) pg/mL Total Protein 7.3 (6.4-8.9) g/dL Albumin 4.6 (3.2-5.2) g/dL Globulin 2.7 (2-4) g/dL Albumin/Globulin Ratio 1.7 (1-3) 04/15/17 Range/Units 14:30 WBC (3.5-10.8) 10^3/ul RBC (4.0-5.4) 10^6/ul Hgb (14.0-18.0) g/dl Hct (42-52) % MCV (80-94) fL MCH (27-31) pg MCHC (31-36) g/dl RDW (10.5-15) % Plt Count (150-450) 10^3/ul MPV (7.4-10.4) um3 Neut % (Auto) (38-83) % Lymph % (Auto) (25-47) % White % (Auto) (1-9) % Eos % (Auto) (0-6) % Baso % (Auto) (0-2) % Absolute Neuts (auto) (1.5-7.7) 10^3/ul Absolute Lymphs (auto) (1.0-4.8) 10^3/ul Absolute Monos (auto) (0-0.8) 10^3/ul Absolute Eos (auto) (0-0.6) 10^3/ul Absolute Basos (auto) (0-0.2) 10^3/ul Absolute Nucleated RBC 10^3/ul Nucleated RBC % Sodium (133-145) mmol/L Potassium (3.5-5.0) mmol/L Chloride (101-111) mmol/L Carbon Dioxide (22-32) mmol/L Anion Gap (2-11) mmol/L BUN (6-24) mg/dL Creatinine (0.67-1.17) mg/dL Est GFR ( Amer) (>60) Est GFR (Non-Af Amer) (>60) BUN/Creatinine Ratio (8-20) Glucose (70-100) mg/dL Lactic Acid 1.5 (0.5-2.0) mmol/L Calcium (8.6-10.3) mg/dL Total Bilirubin (0.2-1.0) mg/dL AST (13-39) U/L ALT (7-52) U/L Alkaline Phosphatase (34-104) U/L Troponin I (<0.04) ng/mL C-Reactive Protein (< 5.00) mg/L B-Natriuretic Peptide ( - 100) pg/mL Total Protein (6.4-8.9) g/dL Albumin (3.2-5.2) g/dL Globulin (2-4) g/dL Albumin/Globulin Ratio (1-3) Result Diagrams: 04/15/17 14:30 04/15/17 14:30 Lab Statement: Any lab studies that have been ordered have been reviewed, and results considered in the medical decision making process. - Radiology CXR Xray Interpretation: No Acute Changes - Overall no changes noted since October with no evidence of active cardiopulmonary disease. ED PHYSICIAN AGREEABLE Radiology Interpretation Completed By: Radiologist - EKG 1 EKG Rhythm: Sinus Tachycardia - @ 120 BPM EKG Interpretation: 11:49 - Nonspecific diffuse changes Re-Evaluation - Re-Evaluation 1 Re-Evaluation Time: 16:59 Comment: Discuss test and lab results Disposition - Course Course Of Treatment: Mr. Venegas presented with expiratory wheezes and a paroxysmal cough. He was given rounds of nebs, codeine and some solumedrol with some improvement. His SPO2 remained in the low 90's but his HR which was in the 130's on arrival improved to 90's at rest but would go right back up with any activity. His wheezing cleared with easy breathing but continued with coughing. I think he needs more time for the steroids to take effect. - Diagnoses Provider Diagnoses: Respiratory insufficiency, Bronchospasm, acute - Physician Notifications Discussed Care Of Patient With: Ulises Coronel Time Discussed With Above Provider: 18:45 Discharge - Discharge Plan Condition: Stable Disposition: ADMITTED TO [facility] Referrals: No Primary Care Phys,NOPCP [Primary Care Provider] - The documentation as recorded by the Allie wren Edward accurately reflects the service I personally performed and the decisions made by me, Dionisio Maier MD.
[2017-04-15] MEDS ORDERED: Albuterol/Ipratropium NEB.SOL* Albuterol 2.5 MG/Ipratropium 0.5 MG 3 ML INH PRN (22:07)
[2017-04-15] MEDS: guaiFENesin LIQ* 100 MG/5 ML UDC PO PRN (22:12)
[2017-04-15] MEDS: Heparin VIAL(*) 5000 UNITS/ML VIAL (FIVE THOUSAND) SUBCUT SCH (22:13)
[2017-04-15] MEDS: NS 0.9% 1000 ML* 1,000 ML IV SCH (22:22)
--- NOTE | 2017-04-15 23:30 | HP ---
HISTORY AND PHYSICAL: DATE OF ADMISSION: 04/15/17 PRIMARY CARE PROVIDER: None. ATTENDING PHYSICIAN: Noris Enrique MD * (dictated by Melani Cunningham NP) CHIEF COMPLAINT: Cough for over a month. HISTORY OF PRESENT ILLNESS: Mr. Venegas is a 46-year-old male with past medical history significant for Crohn disease, pancreatitis, hypertension, reflex sympathetic dystrophy, who presented to the emergency room with complaints of a nonproductive cough for over a month. According to the patient, the cough started while he was hospitalized in [place] for a hypertensive episode in February. The patient reports being on blood pressure medication since October, discharged from here at [facility]; but at that time, the patient was discharged with a 30-day supply and reports not having medical followup care and presented to the [facility] with high blood pressure back in the beginning of February and then was transferred to [place]. So at this point , it is unclear how the patient has been taking his blood pressure medications. It is also to note that according to the patient, he has been taking his blood pressure medications with refill given to him by [facility] and has not followed up with a primary care provider. The patient denies any fever or chills, although he reports subjective feeling of warmth when he touches his head. He denies any chest pain, shortness of breath. He reports a persistent nonproductive cough, feeling as though he has may be something in the back of his throat. For the last 2 weeks, he reports nausea, vomiting, diarrhea and being unable to keep food down and just not eating very much for the last few days. He also reports abdominal pain from his cough. Due to the patient's persistent cough, he decided to present to the emergency room for further evaluation of his symptoms. While in the emergency room, the patient received DuoNebs, Robitussin AC, Solu- Medrol, Zofran and normal saline for possible bronchospasm. He had some improvement in his cough, but not much. He had a chest x-ray showing no acute cardiopulmonary disease. He had an EKG showing a sinus tachycardia. No signs of acute ischemia. He had labs that were significant for an elevated creatinine of 1.74, troponin was 0.00, CRP of 2.72. The Hospitalists were asked to evaluate the patient for admission. PAST MEDICAL HISTORY: 1. Crohn disease. 2. Pancreatitis. 3. Hypertension. 4. Reflex sympathetic dystrophy. PAST SURGICAL HISTORY: 1. Status post bowel resection x2. 2. Status post appendectomy. 3. Status post inguinal hernia repair. 4. Status post right shoulder surgery. 5. Status post knee surgery. 6. Status post elbow surgery. 7. Status post left carpal tunnel release. 8. Status post dorsal column stimulator placement. HOME MEDICATIONS: Include: 1. Chlorthalidone 25 mg oral daily. 2. Clonidine 0.1 mg oral daily. 3. Lisinopril 20 mg oral twice daily. ALLERGIES: COMPAZINE and TORADOL. FAMILY HISTORY: The patient reports a father with a history of aortic aneurysm and his mother with a history of heart failure. The patient had a maternal uncle with a history of diabetes mellitus. The patient's mother had a history of breast cancer. SOCIAL HISTORY: The patient denies tobacco, alcohol or recreational drug use. The patient's sister, Mikaela Mendez, will be his surrogate decision maker in the event he is unable to make decisions for himself. REVIEW OF SYSTEMS: I performed a 14-point review of systems. All the pertinent positives and negatives are mentioned in the history of present illness. The remaining review of systems is negative. PHYSICAL EXAMINATION GENERAL APPEARANCE: The patient is alert, pleasant, appears to be in no acute distress. VITAL SIGNS: Temperature 98.6, heart rate 99, respiratory rate 19, O2 sat 98% on room air, blood pressure 96/65. HEENT: Normocephalic, atraumatic. Pupils are equal and reactive to light. Extraocular eye movements are intact. RESPIRATORY: There is no accessory muscle use. Lungs are clear to auscultation , bilateral. CARDIOVASCULAR: Regular rate and rhythm. S1 and S2 present. Tachycardic. There are no murmurs, rubs, or gallops heard. ABDOMEN: Soft, nontender, and nondistended. There are bowel sounds present x4. EXTREMITIES: There is no lower extremity edema. DP and PT pulses are 2+ and symmetric. MUSCULOSKELETAL: There is no clubbing or cyanosis noted. The patient exhibits good strength in all extremities. NEUROLOGICAL: The patient is alert and oriented x4. Cranial nerves II through XII are grossly intact. PSYCHOLOGICAL: The patient is calm and cooperative. SKIN: There are no rashes or abnormalities seen. DIAGNOSTIC STUDIES/LABORATORY DATA: Sodium 141, potassium 3.6, chloride 105, CO2 26, BUN 17, creatinine 1.74, glucose 92. Troponin 0.00. CRP 2.72. White blood cell count 9.8, hemoglobin 13.1, hematocrit 39, and platelet count 142. EKG shows sinus tachycardia at the rate of 120. There are no acute signs of ischemia. This EKG is similar to the previous EKG from 11/19/16. Chest x-ray from today. Radiologist impression: No active cardiopulmonary disease. IMPRESSION: Mr. Venegas is a 46-year-old male with past medical history significant for hypertension, Crohn disease, pancreatitis and reflex sympathetic dystrophy, who presents to the emergency room today with complaints of cough for over a month. He will be admitted as an observation for cough and acute kidney injury. ASSESSMENT AND PLAN: 1. Cough. The patient reports a persistent nonproductive cough for over a month. His chest x-ray shows no acute findings. He does have some improvement after nebs, Robitussin, Solu-Medrol while in the emergency room. Due to the patient's tachycardia and soft blood pressure, we will check a D-dimer to rule out the possibility of a pulmonary embolus. If the patient's D-dimer is elevated, we will get a CTA to rule out pulmonary embolus. I suspect the patient's cough could be secondary to lisinopril. It is unclear as to how long exactly he has been taking lisinopril. For now, we will hold the lisinopril. We will also monitor him on telemetry. 2. Acute kidney injury. I will give the patient IV fluids overnight. Recheck his labs in the morning. 3. Hypertension. The patient's blood pressure is soft at this time. We are going to hold his blood pressure medications. 4. Fluids, electrolytes, and nutrition: The patient will be on a heart healthy diet. 5. Code status. Full code. 6. DVT prophylaxis: The patient is at moderate risk and will be placed on subcu heparin. 7. Disposition: Observation. TIME SPENT: Time for this admission was approximately 60 minutes, greater than half of that was spent with the patient discussing medications, past medical history, the events leading up to his arrival today, performing a physical examination. The case has been reviewed with the attending, Dr. Enrique, who agrees with the plan of care. Reviewed by RILEY RODRIGUES 04/24/17 2004 [id number]/[facility] #: [id number] [place]
[2017-04-16] MEDS: guaiFENesin LIQ* 100 MG/5 ML UDC PO PRN ×3 (03:13→12:44)
[2017-04-16] MEDS: Ondansetron INJ* 2 MG/ML VIAL IV PRN ×4 (03:16→19:39)
[2017-04-16] MEDS: Heparin VIAL(*) 5000 UNITS/ML VIAL (FIVE THOUSAND) SUBCUT SCH ×3 (05:46→22:55)
[2017-04-16 06:18] LABS: BUN/Creatinine Ratio 11.6 (8-20); Calcium 8.6 mg/dL (8.6-10.3); EGFR African American 54.9 (>60); EGFR Non-African American 42.7 (>60)
[2017-04-16] MEDS: NS 0.9% 1000 ML* 1,000 ML IV SCH ×2 (12:39→22:56)
[2017-04-16 17:45] LABS: Urine Bilirubin Negative (Negative); Urine Glucose Negative (Negative); Urine Nitrite Negative (Negative)
--- NOTE | 2017-04-16 19:26 | PN ---
Subjective Date of Service: 04/16/17 Interval History: Cough is unchanged. Afebrile, and complains of chronic abdominal pain that is unchanged from baseline. Guaifenesin helps the cough a little bit, but it always returns. No chest pain, no sputum, cough is dry. No palpitations, no dysuria, hematuria, or change in urine output. No flank pain. Family History: Unchanged from Admission Social History: Unchanged from Admission Past Medical History: Unchanged from Admission Objective Active Medications: Albuterol/Ipratropium (Duoneb (Albuterol 2.5 Mg/Ipratropium 0.5 Mg)) 1 neb INH Q6H PRN PRN Reason: SOB/WHEEZING Guaifenesin (Robitussin*) 5 ml PO Q4H PRN PRN Reason: COUGH Last Admin: 04/16/17 12:44 Dose: 5 ml Heparin Sodium (Porcine) (Heparin Vial(*)) 5,000 units SUBCUT Q8HR [facility] Last Admin: 04/16/17 15:42 Dose: 5,000 units Sodium Chloride (Ns 0.9% 1000 Ml*) 1,000 mls @ 100 mls/hr IV PER RATE [facility] Last Admin: 04/16/17 12:39 Dose: 100 mls/hr Ondansetron HCl (Zofran Inj*) 4 mg IV Q6H PRN PRN Reason: NAUSEA Last Admin: 04/16/17 13:16 Dose: 4 mg Vital Signs 04/15/17 04/16/17 04/16/17 21:24 03:17 07:40 Temperature 98.7 F 97.7 F Pulse Rate 81 83 Respiratory 19 16 18 Rate Blood Pressure 103/75 103/65 (mmHg) O2 Sat by Pulse 98 97 Oximetry 04/16/17 04/16/17 04/16/17 08:16 10:59 15:21 Temperature 98.9 F 98.7 F 98.7 F Pulse Rate 88 81 73 Respiratory 16 16 16 Rate Blood Pressure 100/79 115/72 98/67 (mmHg) O2 Sat by Pulse 98 97 96 Oximetry Oxygen Devices in Use Now: None Appearance: alert, thin, no distress, coughs frequently Eyes: No Scleral Icterus, PERRLA Ears/Nose/Mouth/Throat: NL Teeth, Lips, Gums, Clear Oropharnyx Neck: NL Appearance and Movements; NL JVP, Trachea Midline Respiratory: Symmetrical Chest Expansion and Respiratory Effort, Clear to Auscultation Cardiovascular: NL Sounds; No Murmurs; No JVD, RRR Abdominal: NL Sounds; No Tenderness; No Distention, No Hepatosplenomegaly, - - healed scars midline and RUQ Lymphatic: No Cervical Adenopathy Extremities: No Edema Skin: No Rash or Ulcers Neurological: Alert and Oriented x 3 Result Diagrams: 04/15/17 14:30 04/16/17 05:27 Additional Lab and Data: Lab Results 04/15/17 04/15/17 04/15/17 Range/Units 14:30 14:30 14:30 WBC 9.8 (3.5-10.8) 10^3/ul RBC 4.43 (4.0-5.4) 10^6/ul Hgb 13.1 L (14.0-18.0) g/dl Hct 39 L (42-52) % MCV 88 (80-94) fL MCH 30 (27-31) pg MCHC 34 (31-36) g/dl RDW 13 (10.5-15) % Plt Count 142 L (150-450) 10^3/ul MPV 12 H (7.4-10.4) um3 Neut % (Auto) 77.2 (38-83) % Lymph % (Auto) 13.5 L (25-47) % Burnet % (Auto) 7.3 (1-9) % Eos % (Auto) 1.2 (0-6) % Baso % (Auto) 0.8 (0-2) % Absolute Neuts (auto) 7.6 (1.5-7.7) 10^3/ul Absolute Lymphs (auto) 1.3 (1.0-4.8) 10^3/ul Absolute Monos (auto) 0.7 (0-0.8) 10^3/ul Absolute Eos (auto) 0.1 (0-0.6) 10^3/ul Absolute Basos (auto) 0.1 (0-0.2) 10^3/ul Absolute Nucleated RBC 0 10^3/ul Nucleated RBC % 0 Sodium 141 (133-145) mmol/L Potassium 3.6 (3.5-5.0) mmol/L Chloride 105 (101-111) mmol/L Carbon Dioxide 26 (22-32) mmol/L Anion Gap 10 (2-11) mmol/L BUN 17 (6-24) mg/dL Creatinine 1.74 H (0.67-1.17) mg/dL Est GFR ( Amer) 54.1 (>60) Est GFR (Non-Af Amer) 42.1 (>60) BUN/Creatinine Ratio 9.8 (8-20) Glucose 92 (70-100) mg/dL Lactic Acid (0.5-2.0) mmol/L Calcium 9.7 (8.6-10.3) mg/dL Total Bilirubin 1.00 (0.2-1.0) mg/dL AST 29 (13-39) U/L ALT 33 (7-52) U/L Alkaline Phosphatase 54 (34-104) U/L Troponin I 0.00 (<0.04) ng/mL C-Reactive Protein 2.76 (< 5.00) mg/L B-Natriuretic Peptide 12 ( - 100) pg/mL Total Protein 7.3 (6.4-8.9) g/dL Albumin 4.6 (3.2-5.2) g/dL Globulin 2.7 (2-4) g/dL Albumin/Globulin Ratio 1.7 (1-3) // Range/Units 14:30 WBC (3.5-10.8) 10^3/ul RBC (4.0-5.4) 10^6/ul Hgb (14.0-18.0) g/dl Hct (42-52) % MCV (80-94) fL MCH (27-31) pg MCHC (31-36) g/dl RDW (10.5-15) % Plt Count (150-450) 10^3/ul MPV (7.4-10.4) um3 Neut % (Auto) (38-83) % Lymph % (Auto) (25-47) % Burnet % (Auto) (1-9) % Eos % (Auto) (0-6) % Baso % (Auto) (0-2) % Absolute Neuts (auto) (1.5-7.7) 10^3/ul Absolute Lymphs (auto) (1.0-4.8) 10^3/ul Absolute Monos (auto) (0-0.8) 10^3/ul Absolute Eos (auto) (0-0.6) 10^3/ul Absolute Basos (auto) (0-0.2) 10^3/ul Absolute Nucleated RBC 10^3/ul Nucleated RBC % Sodium (133-145) mmol/L Potassium (3.5-5.0) mmol/L Chloride (101-111) mmol/L Carbon Dioxide (22-32) mmol/L Anion Gap (2-11) mmol/L BUN (6-24) mg/dL Creatinine (0.67-1.17) mg/dL Est GFR ( Amer) (>60) Est GFR (Non-Af Amer) (>60) BUN/Creatinine Ratio (8-20) Glucose (70-100) mg/dL Lactic Acid 1.5 (0.5-2.0) mmol/L Calcium (8.6-10.3) mg/dL Total Bilirubin (0.2-1.0) mg/dL AST (13-39) U/L ALT (7-52) U/L Alkaline Phosphatase (34-104) U/L Troponin I (<0.04) ng/mL C-Reactive Protein (< 5.00) mg/L B-Natriuretic Peptide ( - 100) pg/mL Total Protein (6.4-8.9) g/dL Albumin (3.2-5.2) g/dL Globulin (2-4) g/dL Albumin/Globulin Ratio (1-3) Assess/Plan/Problems-Billing Assessment: 1. Chronic Cough most likely related to lisinopril. No infectious history or concerns. Last dose of lisinopril was yesterday morning. He should also be treated with a PPI empirically as a trial. He may ultimately need a methacholine challenge, but will need to be off lisinopril before more extensive work up if it does not improve with the removal of the MARY LOU inhibitor. Continue supportive care. 2. JIN vs. CKD Unclear etiology, FeNa is 1.28%, which is unrevealing but makes prerenal etiology less likely. A1c is normal, awaiting spot protein. No casts reported on UA. Check renal ultrasound. 3. Crohn's disease No evidence of flare at this time. 4. Reflex Sympathetic Dystrophy No known relationship of this with a chronic cough that I can find.
[2017-04-16] MEDS: guaiFENesin/CODIEN 100MG-10MG* 5 ML UDC PO PRN ×2 (19:39→22:55)
[2017-04-16] MEDS ORDERED: fentaNYL PATCH 25 MCG/HR TRANSDERM SCH (20:00)
[2017-04-17] MEDS: guaiFENesin/CODIEN 100MG-10MG* 5 ML UDC PO PRN ×3 (03:57→13:59)
[2017-04-17] MEDS: Heparin VIAL(*) 5000 UNITS/ML VIAL (FIVE THOUSAND) SUBCUT SCH ×2 (05:07→14:02)
[2017-04-17] MEDS ORDERED: fentaNYL Patch Check Q Shift 1 NOTE SCH (07:00)
[2017-04-17] MEDS: Ondansetron INJ* 2 MG/ML VIAL IV PRN ×2 (07:48→13:59)
--- NOTE | 2017-04-17 08:34 | RAD ---
INDICATION: Chronic kidney disease. COMPARISON: CT abdomen pelvis dated November 19, 2016 TECHNIQUE: Real-time ultrasound examination of the bilateral kidneys and urinary bladder including grayscale and Doppler color flow analysis. FINDINGS: Bilaterally the kidneys are normal in size and echogenicity. There are no hypervascular renal masses. There are no renal calculi or hydronephrosis identified. Incidentally noted is a mildly enlarged and homogenously attenuating spleen that measures 13.6 x 5.8 x 6.1 cm. IMPRESSION: 1. Normal ultrasound of the kidneys. 2. Incidentally noted splenomegaly.
[2017-04-17] MEDS: NS 0.9% 1000 ML* 1,000 ML IV SCH (09:41)
[2017-04-17 12:53] VITALS: BP 119/78
--- NOTE | 2017-04-18 05:16 | DS ---
DISCHARGE SUMMARY: DATE OF ADMISSION: 04/15/17 DATE OF DISCHARGE: 04/17/17 PRIMARY DIAGNOSIS: Chronic cough. SECONDARY DIAGNOSES: 1. Chronic kidney disease. 2. Crohn disease. 3. History of pancreatitis. 4. Reflex sympathetic dystrophy. PHYSICAL EXAMINATION: On discharge, heart rate 100, temperature 98.6, respiratory rate 16, pulse ox 98% on room air, blood pressure 119/78. General: Alert, well- appearing, in no distress, coughs frequently. Neck: No cervical lymphadenopathy. No jugular venous pressure. HEENT: Pupils are equal , round, and reactive to light. Moist mucosa. No pharyngeal exudates or erythema. No sinus tenderness. Chest: Regular rate and rhythm. No murmurs. Lungs: Clear bilaterally. No wheezes or rhonchi. Abdomen: Soft, diffusely tender to palpation, midline incision and right upper quadrant incisions well healed. No CVA tenderness. Extremities: No ecchymoses, no edema. Pulses 2+ throughout. HOSPITAL COURSE BY PROBLEM: 1. Chronic cough. Mr. Venegsa presented to the emergency department with 1 month of a dry nonproductive cough that was not associated with fevers, chills, chest pain, or shortness of breath. He was noted to have recently been started on lisinopril. Lisinopril was held; however, his cough persisted. He was started on Protonix and will be discharged with PCP followup. A chest x-ray was unremarkable and he had no infectious stigmata. He was encouraged to follow up with his PCP for a methacholine challenge if his symptoms do not improve in the next week. Of note, he is moving to [facility] this week and will get a new PCP when he moves there. 2. Chronic kidney disease. His creatinine was noted to be elevated from baseline, a FENa was 1.28%, and his creatinine did not respond to IV fluid resuscitation indicating a chronic process. A renal ultrasound was unremarkable. He had no proteinuria and an A1c was within normal limits. 3. Crohn's disease. He had no evidence of a flare. He is not currently on any medication for maintenance. 4. Reflex sympathetic dystrophy. He is not currently on any narcotics. [id number]/[facility] #: [id number] [place]
== END 2017-04-17 16:15 | disposition home or self-care (01) ==
LOC: ED 11:42 → MEDTELE 19:46
PROVIDERS: ADMIT Pediatrics; ATTEND Internal Medicine
DX: R05 Cough (principal); I12.9 Hypertensive chronic kidney disease with stage 1 through stage 4 chronic kidney disease, or unspecified chronic kidney disease; N18.9 Chronic kidney disease, unspecified; N17.9 Acute kidney failure, unspecified; K50.90 Crohn's disease, unspecified, without complications; G90.50 Complex regional pain syndrome I, unspecified; Z79.899 Other long term (current) drug therapy; Z88.8 Allergy status to other drugs, medicaments and biological substances; R16.1 Splenomegaly, not elsewhere classified; R00.0 Tachycardia, unspecified
CPT/HCPCS: 36415; 71020; 76775; 80048; 80053; 81003; 82570; 83036; 83605; 83690; 83880; 84156; 84300; 84484; 85025; 85379; 86140; 87040; 93005; 94640; 96361; 96372; 96374; 96375; 96376; 99283; A9270-GY; G0378; J1644; J2405; J2930

== ENCOUNTER 2017-05-12 19:25 | Emergency (ER) | payer MEDICARE ==
[2017-05-12 21:11] LABS: Hematocrit 38 % (42-52); Hemoglobin 12.9 g/dl (14.0-18.0); Mean Corpuscular HGB Conc 34 g/dl (31-36); Mean Corpuscular Hemoglobin 30 pg (27-31); Mean Corpuscular Volume 89 fL (80-94); Mean Platelet Volume 10 um3 (7.4-10.4); Red Blood Count 4.31 10^6/ul (4.0-5.4); Red Cell Distribution Width 14 % (10.5-15); White Blood Count 8.4 10^3/ul (3.5-10.8)
[2017-05-12 21:25] LABS: Albumin 4.1 g/dL (3.2-5.2); BUN/Creatinine Ratio 7.8 (8-20); C Reactive Protein 1.7 mg/L (< 5.00); Calcium 8.6 mg/dL (8.6-10.3); EGFR African American 86.4 (>60); EGFR Non-African American 67.2 (>60); Globulin 2.4 g/dL (2-4); Total Bilirubin 0.4 mg/dL (0.2-1.0); Total Protein 6.5 g/dL (6.4-8.9)
[2017-05-12 21:30] LABS: Urine Bilirubin Negative (Negative); Urine Glucose Negative (Negative); Urine Nitrite Negative (Negative)
[2017-05-12] MEDS ORDERED: HYDROcodone/ACETAMIN 5-325 MG* 1 TAB PO ONE (21:52)
[2017-05-12 22:03] VITALS: BP 172/102
--- NOTE | 2017-05-12 22:45 | ED ---
Hai Pop Alfonso, scribed for Dionisio Maier MD on 05/12/17 at 2019 . Back Pain - HPI Summary HPI Summary: This patient is a 46 year old M presenting to [facility] with a chief complaint of low back pain since 4 days ago, worse since earlier today. The pain is worse on the left side. He states it feels like it was hit like a hammer. The patient rates the sharp pain 7/10 in severity. Symptoms aggravated by movement. Symptoms alleviated by lying flat. Patient reports bilateral calf swelling ( noticed today and worse on the right). - History of Current Complaint Chief Complaint: EDBackInjuryPain Stated Complaint: LOWER BACK PAIN/LEG SWELLING Time Seen by Provider: 05/12/17 20:05 Hx Obtained From: Patient Onset/Duration: Sudden Onset, Lasting Days - 4, Worse Since - earlier today Timing: Constant Back Pain Location: Is Discrete @ - low back Severity Currently: Moderate Pain Intensity: 7 Pain Scale Used: 0-10 Numeric Aggravating Symptom(s): Movement Alleviating Symptom(s): Position Associated Signs And Symptoms: Positive: Other - bilateral calf swelling ( noticed today and worse on the right). - Allergies/Home Medications Allergies/Adverse Reactions: Allergies Allergy/AdvReac Type Severity Reaction Status Date / Time Prochlorperazine Allergy Severe Anaphylatic Verified 05/12/17 19:33 [From Compazine] Shock Ketorolac Tromethamine Allergy Unknown unk Verified 05/12/17 19:33 [From Toradol] PMH/Surg Hx/FS Hx/Imm Hx Endocrine/Hematology History: Denies: Hx Anticoagulant Therapy, Hx Diabetes, Hx Thyroid Disease Cardiovascular History: Reports: Hx Hypertension - Pt currently not on medication per MD Denies: Hx Pacemaker/ICD Respiratory History: Denies: Hx Asthma, Hx Chronic Obstructive Pulmonary Disease (COPD) GI History: Reports: Hx Crohn's Disease, Hx Obstructive Bowel - bowel resections x 2, Other GI Disorders - bowel resect x 2 r/t blood vessel bursting , pancreatitis History: Denies: Hx Renal Disease Sensory History: Reports: Hx Contacts or Glasses Denies: Hx Hearing Aid Comment Only: Other Sensory Impairments - RDS Opthamlomology History: Reports: Hx Contacts or Glasses Comment Only: Other Sensory Impairments - RDS Neurological History: Reports: Hx Headaches, Hx Migraine, Other Neuro Impairments/Disorders - RSD Denies: Hx Dementia, Hx Seizures Psychiatric History: Denies: Hx Substance Abuse - Cancer History Cancer Type, 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 Infectious Disease History: No Infectious Disease History: Denies: Hx Hepatitis, Hx Human Immunodeficiency Virus (HIV), Traveled Outside the [place] in Last 30 Days - Family History Known Family History: Positive: Other - Grandfather and father with aortic dissection. Family History: Grandfather and father with aortic dissection. - Social History Alcohol Use: None Substance Use Type: Reports: None Smoking Status (MU): Never Smoked Tobacco Review of Systems Negative: Fever Positive: Edema, Other - Back pain All Other Systems Reviewed And Are Negative: Yes Physical Exam Triage Information Reviewed: Yes Vital Signs On Initial Exam: Initial Vitals Temp Pulse Resp BP Pulse Ox 98.3 F 94 18 184/118 98 05/12/17 19:30 05/12/17 19:30 05/12/17 19:30 05/12/17 19:30 05/12/17 19:30 Vital Signs Reviewed: Yes Appearance: Positive: Well-Appearing, No Pain Distress Skin: Positive: Warm, Skin Color Reflects Adequate Perfusion, Dry Head/Face: Positive: Normal Head/Face Inspection Eyes: Positive: Normal ENT: Positive: Normal ENT inspection Neck: Positive: Supple, Nontender Respiratory/Lung Sounds: Positive: Clear to Auscultation, Breath Sounds Present Cardiovascular: Positive: RRR Abdomen Description: Positive: Nontender, Soft. Negative: CVA Tenderness (R), CVA Tenderness (L) Bowel Sounds: Positive: Present Musculoskeletal: Positive: Other - Tender bilateral paralumbar area. Positive straight leg raise on both sides. Bilateral ankles pitting edema non tender no erythema. Neurological: Positive: Normal, Sensory/Motor Intact, Alert, Oriented to Person Place, Time, CN Intact II-III Psychiatric: Positive: Normal, Affect/Mood Appropriate - [place] Coma Scale Coma Scale Total: 15 Diagnostics - Vital Signs Vital Signs Temp Pulse Resp BP Pulse Ox 05/12/17 19:30 98.3 F 94 18 184/118 98 - Laboratory Lab Results: Lab Results 05/12/17 05/12/17 05/12/17 Range/Units 21:00 21:00 21:00 WBC 8.4 (3.5-10.8) 10^3/ul RBC 4.31 (4.0-5.4) 10^6/ul Hgb 12.9 L (14.0-18.0) g/dl Hct 38 L (42-52) % MCV 89 (80-94) fL MCH 30 (27-31) pg MCHC 34 (31-36) g/dl RDW 14 (10.5-15) % Plt Count 188 (150-450) 10^3/ul MPV 10 (7.4-10.4) um3 Neut % (Auto) 62.8 (38-83) % Lymph % (Auto) 24.7 L (25-47) % [place] % (Auto) 8.1 (1-9) % Eos % (Auto) 3.3 (0-6) % Baso % (Auto) 1.1 (0-2) % Absolute Neuts (auto) 5.2 (1.5-7.7) 10^3/ul Absolute Lymphs (auto) 2.1 (1.0-4.8) 10^3/ul Absolute Monos (auto) 0.7 (0-0.8) 10^3/ul Absolute Eos (auto) 0.3 (0-0.6) 10^3/ul Absolute Basos (auto) 0.1 (0-0.2) 10^3/ul Absolute Nucleated RBC 0 10^3/ul Nucleated RBC % 0 D-Dimer, Quantitative < 200 (Less Than 230) ng/mL Sodium 139 (133-145) mmol/L Potassium 4.0 (3.5-5.0) mmol/L Chloride 106 (101-111) mmol/L Carbon Dioxide 29 (22-32) mmol/L Anion Gap 4 (2-11) mmol/L BUN 9 (6-24) mg/dL Creatinine 1.16 (0.67-1.17) mg/dL Est GFR ( Amer) 86.4 (>60) Est GFR (Non-Af Amer) 67.2 (>60) BUN/Creatinine Ratio 7.8 L (8-20) Glucose 92 (70-100) mg/dL Calcium 8.6 (8.6-10.3) mg/dL Total Bilirubin 0.40 (0.2-1.0) mg/dL AST 17 (13-39) U/L ALT 23 (7-52) U/L Alkaline Phosphatase 49 (34-104) U/L C-Reactive Protein 1.70 (< 5.00) mg/L Total Protein 6.5 (6.4-8.9) g/dL Albumin 4.1 (3.2-5.2) g/dL Globulin 2.4 (2-4) g/dL Albumin/Globulin Ratio 1.7 (1-3) Urine Color Urine Appearance Urine pH (5-9) Ur Specific [place] (1.010-1.030) Urine Protein (Negative) Urine Ketones (Negative) Urine Blood (Negative) Urine Nitrate (Negative) Urine Bilirubin (Negative) Urine Urobilinogen (Negative) Ur Leukocyte Esterase (Negative) Urine Glucose (Negative) 05/12/17 Range/Units 21:18 WBC (3.5-10.8) 10^3/ul RBC (4.0-5.4) 10^6/ul Hgb (14.0-18.0) g/dl Hct (42-52) % MCV (80-94) fL MCH (27-31) pg MCHC (31-36) g/dl RDW (10.5-15) % Plt Count (150-450) 10^3/ul MPV (7.4-10.4) um3 Neut % (Auto) (38-83) % Lymph % (Auto) (25-47) % [place] % (Auto) (1-9) % Eos % (Auto) (0-6) % Baso % (Auto) (0-2) % Absolute Neuts (auto) (1.5-7.7) 10^3/ul Absolute Lymphs (auto) (1.0-4.8) 10^3/ul Absolute Monos (auto) (0-0.8) 10^3/ul Absolute Eos (auto) (0-0.6) 10^3/ul Absolute Basos (auto) (0-0.2) 10^3/ul Absolute Nucleated RBC 10^3/ul Nucleated RBC % D-Dimer, Quantitative (Less Than 230) ng/mL Sodium (133-145) mmol/L Potassium (3.5-5.0) mmol/L Chloride (101-111) mmol/L Carbon Dioxide (22-32) mmol/L Anion Gap (2-11) mmol/L BUN (6-24) mg/dL Creatinine (0.67-1.17) mg/dL Est GFR ( Amer) (>60) Est GFR (Non-Af Amer) (>60) BUN/Creatinine Ratio (8-20) Glucose (70-100) mg/dL Calcium (8.6-10.3) mg/dL Total Bilirubin (0.2-1.0) mg/dL AST (13-39) U/L ALT (7-52) U/L Alkaline Phosphatase (34-104) U/L C-Reactive Protein (< 5.00) mg/L Total Protein (6.4-8.9) g/dL Albumin (3.2-5.2) g/dL Globulin (2-4) g/dL Albumin/Globulin Ratio (1-3) Urine Color Yellow Urine Appearance Clear Urine pH 6.0 (5-9) Ur Specific [place] 1.013 (1.010-1.030) Urine Protein Negative (Negative) Urine Ketones Negative (Negative) Urine Blood Negative (Negative) Urine Nitrate Negative (Negative) Urine Bilirubin Negative (Negative) Urine Urobilinogen Negative (Negative) Ur Leukocyte Esterase Negative (Negative) Urine Glucose Negative (Negative) Result Diagrams: 05/12/17 21:00 05/12/17 21:00 Lab Statement: Any lab studies that have been ordered have been reviewed, and results considered in the medical decision making process. Back Pain Course/Dx - Course Course Of Treatment: Mr. Venegas presented with back pain that was clearly musculoskeletal. He also had some bilateral peripheral edema which I could not explain. His labs were negative including a d-dimer. I don't think the two things are related and will treat his back pain and recommend F/U for the edema. - Diagnoses Provider Diagnoses: Peripheral edema, Low back strain Discharge - Discharge Plan Condition: Stable Disposition: HOME Prescriptions: HYDROcodone/ACETAMIN 5-325 MG* [Innis 5-325 TAB*] 1 tab PO Q6H PRN #20 tab MDD 4 PRN Reason: Pain Patient Education Materials: Back Pain (ED) Referrals: [facility] PHYSICIAN REFERRAL [Outside] - 3 Days Additional Instructions: RETURN TO THE EMERGENCY DEPARTMENT FOR CHANGING OR WORSENING SYMPTOMS. The documentation as recorded by the Hai wren Alfonso accurately reflects the service I personally performed and the decisions made by me, Dionisio Maier MD.
== END 2017-05-12 22:02 | disposition home or self-care (01) ==
LOC: ED 19:25
DX: S39.012A Strain of muscle, fascia and tendon of lower back, initial encounter (principal); R60.9 Edema, unspecified; X58.XXXA Exposure to other specified factors, initial encounter; Y93.9 Activity, unspecified; Y92.89 Other specified places as the place of occurrence of the external cause; Y99.9 Unspecified external cause status
CPT/HCPCS: 36415; 80053; 81003; 85025; 85379; 86140; 99282

== ENCOUNTER 2017-05-18 18:12 | Emergency (ER) | payer MEDICARE ==
--- NOTE | 2017-05-18 20:45 | RAD ---
Indication: Leg swelling. Comparison is made with previous exam dated April 15, 2017. 2 views of the chest including dual energy PA views demonstrate no mediastinal shift. Heart is of normal size and configuration. Neurostimulator leads are noted in the epidural space. IMPRESSION: No active cardiopulmonary disease is noted.
[2017-05-18 21:38] LABS: Hematocrit 42 % (42-52); Hemoglobin 14.1 g/dl (14.0-18.0); Mean Corpuscular HGB Conc 34 g/dl (31-36); Mean Corpuscular Hemoglobin 31 pg (27-31); Mean Corpuscular Volume 90 fL (80-94); Mean Platelet Volume 11 um3 (7.4-10.4); Red Blood Count 4.64 10^6/ul (4.0-5.4); Red Cell Distribution Width 14 % (10.5-15); White Blood Count 7.6 10^3/ul (3.5-10.8)
[2017-05-18 21:54] LABS: Albumin 4.6 g/dL (3.2-5.2); BUN/Creatinine Ratio 10.3 (8-20); C Reactive Protein 5.03 mg/L (< 5.00); Calcium 9.6 mg/dL (8.6-10.3); EGFR African American 78.6 (>60); EGFR Non-African American 61.1 (>60); Globulin 2.8 g/dL (2-4); Potassium 4.2 mmol/L (3.5-5.0); Total Bilirubin 0.5 mg/dL (0.2-1.0); Total Protein 7.4 g/dL (6.4-8.9)
[2017-05-18 21:55] LABS: Troponin I 0.01 ng/mL (<0.04)
[2017-05-19] MEDS ORDERED: Acetaminophen TAB* 325 MG PO ONE (00:59)
[2017-05-19] MEDS ORDERED: Sulfamethox/Trimethoprim DS 800/160* TAB PO ONE (00:59)
--- NOTE | 2017-05-19 01:11 | ED ---
Ana Pop Thomas, scribed for Vance Nevarez on 05/19/17 at 0050 . Lower Extremity - HPI Summary HPI Summary: The pt is a 46 y/o M presenting to the ED c/o bilateral leg pain and swelling that began two weeks ago. The pain is constant. The pain is rated 6/10. The pain is aggravated by palpation and is alleviated by nothing. The patient has treated the pain with nothing STAFFING RN. Pt denies CP and SOB. He was seen at [facility] ED a week ago for low back pain and leg swelling. - History of Current Complaint Chief Complaint: EDExtremityLower Stated Complaint: SWELLING & RASH ON LEGS Time Seen by Provider: 05/18/17 23:04 Hx Obtained From: Patient Onset of Pain: Days - onset of pain two weeks ago Onset/Duration: Still Present Pain Intensity: 6 Pain Scale Used: 0-10 Numeric Timing: Constant Location: Is Discrete @ - bilateral leg pain Associated Signs And Symptoms: Positive: Swelling - bilateral leg. Negative: Other - NEGATIVE: CP, SOB Aggravating Factor(s): Other - Palpation Alleviating Factor(s): Nothing - Allergies/Home Medications Allergies/Adverse Reactions: Allergies Allergy/AdvReac Type Severity Reaction Status Date / Time Prochlorperazine Allergy Severe Anaphylatic Verified 05/12/17 19:33 [From Compazine] Shock Ketorolac Tromethamine Allergy Unknown unk Verified 05/12/17 19:33 [From Toradol] PMH/Surg Hx/FS Hx/Imm Hx Previously Healthy: No Endocrine/Hematology History: Denies: Hx Anticoagulant Therapy, Hx Diabetes, Hx Thyroid Disease Cardiovascular History: Reports: Hx Hypertension - Pt currently not on medication per MD Denies: Hx Pacemaker/ICD Respiratory History: Denies: Hx Asthma, Hx Chronic Obstructive Pulmonary Disease (COPD) GI History: Reports: Hx Crohn's Disease, Hx Obstructive Bowel - bowel resections x 2, Other GI Disorders - bowel resect x 2 r/t blood vessel bursting , pancreatitis History: Denies: Hx Renal Disease Sensory History: Reports: Hx Contacts or Glasses Denies: Hx Hearing Aid Comment Only: Other Sensory Impairments - RDS Opthamlomology History: Reports: Hx Contacts or Glasses Comment Only: Other Sensory Impairments - RDS Neurological History: Reports: Hx Headaches, Hx Migraine, Other Neuro Impairments/Disorders - RSD Denies: Hx Dementia, Hx Seizures Psychiatric History: Denies: Hx Substance Abuse - Cancer History Cancer Type, 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 Infectious Disease History: No Infectious Disease History: Denies: Hx Hepatitis, Hx Human Immunodeficiency Virus (HIV), Traveled Outside the [place] in Last 30 Days - Family History Known Family History: Positive: Other - Grandfather and father with aortic dissection. Family History: Grandfather and father with aortic dissection. - Social History Alcohol Use: None Substance Use Type: Reports: None Smoking Status (MU): Never Smoked Tobacco Review of Systems Negative: Fever Negative: Chest Pain Negative: Shortness Of Breath Positive: Other - Bilateral leg pain and swelling All Other Systems Reviewed And Are Negative: Yes Physical Exam - Summary Physical Exam Summary: Appearance: Well appearing, no pain distress. Skin: Warm, dry, reflects adequate perfusion. He has some erythema bilaterally on his legs. Head/face: Normal. Eyes: EOMI, NITISH. ENT: Normal. Neck: Supple, nontender. Respiratory: CTA, breath sounds present. Cardiovascular: RRR, pulses symmetrical. Abdomen: Nontender, soft. Bowel: Present. Musculoskeletal: Strength/ROM intact. He has bilateral pedal edema. Neuro: Normal, sensory motor intact, A&Ox3. Triage Information Reviewed: Yes Vital Signs On Initial Exam: Initial Vitals Temp Pulse Resp BP Pulse Ox 98.3 F 83 18 164/116 98 05/18/17 18:31 05/18/17 18:31 05/18/17 18:31 05/18/17 18:31 05/18/17 18:31 Vital Signs Reviewed: Yes - [place] Coma Scale Coma Scale Total: 15 Diagnostics - Vital Signs Vital Signs Temp Pulse Resp BP Pulse Ox 05/18/17 20:50 98.3 F 79 14 170/84 95 05/18/17 18:31 98.3 F 83 18 164/116 98 - Laboratory Lab Results: Lab Results 05/18/17 05/18/17 05/18/17 Range/Units 21:06 21:06 21:06 WBC 7.6 (3.5-10.8) 10^3/ul RBC 4.64 (4.0-5.4) 10^6/ul Hgb 14.1 (14.0-18.0) g/dl Hct 42 (42-52) % MCV 90 (80-94) fL MCH 31 (27-31) pg MCHC 34 (31-36) g/dl RDW 14 (10.5-15) % Plt Count 174 (150-450) 10^3/ul MPV 11 H (7.4-10.4) um3 Neut % (Auto) 59.5 (38-83) % Lymph % (Auto) 27.7 (25-47) % [place] % (Auto) 8.4 (1-9) % Eos % (Auto) 3.5 (0-6) % Baso % (Auto) 0.9 (0-2) % Absolute Neuts (auto) 4.5 (1.5-7.7) 10^3/ul Absolute Lymphs (auto) 2.1 (1.0-4.8) 10^3/ul Absolute Monos (auto) 0.6 (0-0.8) 10^3/ul Absolute Eos (auto) 0.3 (0-0.6) 10^3/ul Absolute Basos (auto) 0.1 (0-0.2) 10^3/ul Absolute Nucleated RBC 0 10^3/ul Nucleated RBC % 0 Sodium 138 (133-145) mmol/L Potassium 4.2 (3.5-5.0) mmol/L Chloride 104 (101-111) mmol/L Carbon Dioxide 28 (22-32) mmol/L Anion Gap 6 (2-11) mmol/L BUN 13 (6-24) mg/dL Creatinine 1.26 H (0.67-1.17) mg/dL Est GFR ( Amer) 78.6 (>60) Est GFR (Non-Af Amer) 61.1 (>60) BUN/Creatinine Ratio 10.3 (8-20) Glucose 86 (70-100) mg/dL Calcium 9.6 (8.6-10.3) mg/dL Total Bilirubin 0.50 (0.2-1.0) mg/dL AST 20 (13-39) U/L ALT 20 (7-52) U/L Alkaline Phosphatase 60 (34-104) U/L Troponin I 0.01 (<0.04) ng/mL C-Reactive Protein 5.03 H (< 5.00) mg/L B-Natriuretic Peptide 50 ( - 100) pg/mL Total Protein 7.4 (6.4-8.9) g/dL Albumin 4.6 (3.2-5.2) g/dL Globulin 2.8 (2-4) g/dL Albumin/Globulin Ratio 1.6 (1-3) Result Diagrams: 05/18/17 21:06 05/18/17 21:06 Lab Statement: Any lab studies that have been ordered have been reviewed, and results considered in the medical decision making process. - Radiology CXR Xray Interpretation: No Acute Changes - No active cardiopulmonary disease is noted. ED physician has reviewed this report and agrees. Radiology Interpretation Completed By: Radiologist - Additional Comments Diagnostic Additional Comments: US Bilateral Lower Extremities. Interpreted by radiologist. Impression: negative for right or left lower extremity DVT. ED physician has reviewed this report and agrees. Lower Extremity Course/Dx - Course Assessment/Plan: 46 y/o M presents with bilateral leg pain and swelling. Bloodwork obtained. Ultrasound negative for DVT. Patient diagnosed with cellultis and discharged with antibiotics. - Diagnoses Provider Diagnoses: Cellulitis, bilateral legs Discharge - Discharge Plan Condition: Stable Disposition: HOME Prescriptions: Sulfamethox/Trimethoprim DS* [Bactrim DS 800/160 TAB*] 1 tab PO BID #20 tab Patient Education Materials: Cellulitis (ED) Referrals: [facility] PHYSICIAN REFERRAL [Outside] - 3 Days Additional Instructions: Follow up with your primary care provider in three days. You can use the [facility] Physician referral service to find one if needed. Return to the emergency room for any new or worsening symptoms. The documentation as recorded by the Ana wren Thomas accurately reflects the service I personally performed and the decisions made by , Vance Nevarez.
[2017-05-19 01:33] VITALS: BP 170/110
--- NOTE | 2017-05-19 08:11 | RAD ---
INDICATION: Pain and swelling. . Rash. COMPARISON: None TECHNIQUE: Duplex interrogation of the the left and right lowerextremity was performed. FINDINGS: Deep veins: The common femoral, great saphenous, profunda femoris, proximal, mid, and distal deep femoral, popliteal, posterior tibial, and peroneal veins are patent. There is normal compressibility, augmentation, and phasic flow. Superficial veins: There are no findings of superficial thrombophlebitis. Popliteal fossa:There is no evidence of a popliteal cyst. Soft tissues:There are no soft tissue abnormalities. IMPRESSION: No evidence of deep venous thrombosis
== END 2017-05-19 01:30 | disposition home or self-care (01) ==
LOC: ED 18:12
DX: L03.116 Cellulitis of left lower limb (principal); L03.115 Cellulitis of right lower limb; M79.605 Pain in left leg; M79.604 Pain in right leg
CPT/HCPCS: 36415; 71020; 80053; 83880; 84484; 85025; 86140; 93970; 99282; A9270-GY

== ENCOUNTER 2017-09-22 14:46 | Emergency (ER) | payer MEDICARE ==
--- NOTE | 2017-09-22 16:24 | ED ---
Lower Extremity - History of Current Complaint Chief Complaint: EDExtremityLower Stated Complaint: RT LEG/ANKLE PAIN Time Seen by Provider: 09/22/17 15:27 Pain Intensity: 8 - Allergies/Home Medications Allergies/Adverse Reactions: Allergies Allergy/AdvReac Type Severity Reaction Status Date / Time MS Prochlorperazine Allergy Severe Anaphylatic Verified 05/12/17 19:33 [From Compazine] Shock MS Ketorolac Tromethamine Allergy Unknown unk Verified 05/12/17 19:33 [From Toradol] PMH/Surg Hx/FS Hx/Imm Hx Endocrine/Hematology History: Denies: Hx Anticoagulant Therapy, Hx Diabetes, Hx Thyroid Disease Cardiovascular History: Reports: Hx Hypertension - Pt currently not on medication per MD Denies: Hx Pacemaker/ICD Respiratory History: Denies: Hx Asthma, Hx Chronic Obstructive Pulmonary Disease (COPD) GI History: Reports: Hx Crohn's Disease, Hx Obstructive Bowel - bowel resections x 2, Other GI Disorders - bowel resect x 2 r/t blood vessel bursting , pancreatitis History: Denies: Hx Renal Disease Sensory History: Reports: Hx Contacts or Glasses Denies: Hx Hearing Aid Comment Only: Other Sensory Impairments - RDS Opthamlomology History: Reports: Hx Contacts or Glasses Comment Only: Other Sensory Impairments - RDS Neurological History: Reports: Hx Headaches, Hx Migraine, Other Neuro Impairments/Disorders - RSD Denies: Hx Dementia, Hx Seizures Psychiatric History: Denies: Hx Substance Abuse - Cancer History Cancer Type, 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 Infectious Disease History: No Infectious Disease History: Denies: Hx Hepatitis, Hx Human Immunodeficiency Virus (HIV), Traveled Outside the [place] in Last 30 Days - Family History Known Family History: Positive: Other - Grandfather and father with aortic dissection. Family History: Grandfather and father with aortic dissection. - Social History Alcohol Use: None Substance Use Type: Reports: None Smoking Status (MU): Never Smoked Tobacco Physical Exam Vital Signs On Initial Exam: Initial Vitals Temp Pulse Resp BP Pulse Ox 98.6 F 119 20 163/116 100 09/22/17 14:50 09/22/17 14:50 09/22/17 14:50 09/22/17 14:50 09/22/17 14:50 Diagnostics - Vital Signs Vital Signs Temp Pulse Resp BP Pulse Ox 09/22/17 14:50 98.6 F 119 20 163/116 100 - Laboratory Lab Statement: Any lab studies that have been ordered have been reviewed, and results considered in the medical decision making process. Discharge - Discharge Plan Referrals: No Primary Care Phys,NOPCP [Primary Care Provider] -
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
--- OUTSIDE RECORDS SUMMARY | 2017-09-22 16:38 | XMS REPORT ---
:1970 External Reference #:[id number] Author Organization [employer] Address [address] [address] Phone [phone] Care Team Providers Name Role Phone Niko Roy MD Primary Care Physician Unavailable Payers Type Date Identification Numbers Payment Provider Subscriber Medicare Primary Policy Number: [id number] Medicare Gulshan Venegas PayID: [id number] [facility] [address] [place] [address] Problems Date Description Provider Status Onset: 08/30/2017 [...] Shirlene Sodium 018 tablet Bernabe, twice a REGULATORY ASSOCIATE day with food (pt is not taking) Aleve Active Tablets 220mg twice a Shirlene 018 day Bernabe, REGULATORY ASSOCIATE Advil Active Capsules 200mg as needed Unknown [...] Location Provider CPT E/M Dx Office Visit 04/17/2017 10:40a [facility] , [place] [address] R05 Hospitalists N17.9 K50.90 I10 Office Visit 04/15/2017 10:39a [facility] Melani Parks, 45601 R05 Assoc,pc REGULATORY ASSOCIATE Hospitalists N17.9 K50.90 Office Visit 11/22/2016 9:39a [facility] Melnai Parks, 01263 R52 Assoc,pc REGULATORY ASSOCIATE Hospitalists K50.90 I16.0 Office Visit 11/21/2016 9:39a [facility] Melani Parks, 57603 R52 Assoc,pc REGULATORY ASSOCIATE Hospitalists K50.90 I16.0 Office Visit 11/19/2016 9:38a [facility] ,deondre Coronel M.D. 81791 R52 Hospitalists K50.90 I16.0 Office Visit 09/29/2015 8:33a [facility] NIDIA Marshall 78021 K50.918 Assoc,pc Hospitalists K43.0 R19.7 R10.32 Office Visit 09/12/2012 2:41p [facility] ,deondre Coronel M.D. 04934 577.1 Hospitalists 789.07 577.2 555.0 Office Visit 09/11/2012 2:41p [facility] Ulises Coronel M.D. 48123 577.1 Hospitalists 789.07 577.2 555.0 Office Visit 09/10/2012 2:41p [facility] Ulises Coronel M.D. 58739 577.1 Hospitalists 789.07 577.2 555.0 Office Visit 09/09/2012 2:40p [facility] [place], [address] 577.1 Assoc,pc Hospitalists MSam 789.07 577.2 555.0 Office Visit 09/08/2012 2:40p [facility] [place], [address] 577.1 Assoc,pc Hospitalists MSam 789.07 577.2 555.0 Office Visit 09/07/2012 2:36p [facility] [place], [address] 577.1 Assoc,pc Hospitalists Kimmie 789.07 577.2 555.0 Office Visit 09/06/2012 2:34p [facility] [place], [address] 577.1 Assoc,pc Hospitalists Kimmie 877.1 789.07 577.2 555.0 Office Visit 09/05/2012 2:34p [facility] [place], [address] 577.1 Assoc,pc Hospitalists Kimmie 789.07 577.2 555.0 Office Visit 09/04/2012 2:33p [facility] [place], [address] 577.0 Assoc,pc Hospitalists Kimmie 787.01 555.0 Office Visit 09/03/2012 2:33p [facility] [place], [address] 577.0 Assoc,pc Hospitalists Kimmie 787.01 555.0 Office Visit 09/02/2012 2:33p [facility] Daysi Ruvalcaba, 29677 577.0 Hospitalists Kimmie 787.01 555.0 Office Visit 09/01/2012 2:32p [facility] Daysi Ruvalcaba, 85464 577.0 Hospitalists Kimmie 787.01 555.0 Office Visit 08/31/2012 [facility] Ruval[facility], 36143 577.0 Hospitalists Kimmie 787.01 Office Visit 08/30/2012 2:[facility]p [facility] Ulises Coronel M.D. 68715 577.0 Hospitalists 787.01 555.0 Office Visit 06/30/2012 7:04a [facility] Niko DJaja [place], [address]247 577.0 Assoc,pc Hospitalists MSam Hospitalist 799.4 338.29 276.8 Office Visit 06/29/2012 7:03a [facility] Niko DengJaja [place], 11242 577.0 Assoc,pc Hospitalists M.DJaja Hospitalist 799.4 338.29 Office Visit 06/28/2012 7:03a [facility] Niko DaJja [place], 18696 577.0 Assoc,pc Hospitalists M.Lissett Hospitalist 799.4 338.29 Office Visit 06/27/2012 7:02a [facility] Niko DengJaja [place], 29879 577.0 Assoc,pc Hospitalists M.Lissett Hospitalist 995.90 799.4 276.8 Office Visit 06/26/2012 7:02a [facility] Niko DengJaja [place], [address] 577.0 Assoc,pc Hospitalists M.Lissett Hospitalist 995.90 799.4 276.8 Office Visit 06/25/2012 7:02a [facility],pc Denilson Israel, 77346 577.0 Hospitalists Kimmie 995.90 276.8 799.4 Office Visit 06/24/2012 7:01a [facility],pc Ulises Coronel M.D. 98271 577.0 Hospitalists 995.90 276.8 799.4 Office Visit 06/23/2012 4:26p [facility] Neeraj Mosley, 36781 577.0 Hospitalists D.OJaja 995.90 276.8 799.4 Office Visit 06/22/2012 4:26p [facility] Assoc,pc Neeraj Mosley, 83995 577.0 Hospitalists D.O. 995.90 276.8 799.4 Office Visit 06/21/2012 4:25p [facility], 92873 577.0 Hospitalists D.O. 995.90 276.8 799.4 Office Visit 06/20/2012 4:25p [facility] Mos[facility], 03745 577.0 Hospitalists D.O. 995.90 276.8 276.50 Office Visit 06/19/2012 4:25p [facility]de[facility] Mosley, 07409 577.0 Hospitalists D.O. 995.90 276.8 276.2 Plan of Care Future Appointment(s):10/17/2017 10:00 am - [facility]in Meehan MD at [facility]11/27/2017 1:40 pm - Shirlene Bernabe NP at [facility] - [address]
--- NOTE | 2017-09-22 16:56 | RAD ---
Indication: Right knee injury. 2 views of the right knee are reviewed. No prior study is available for comparison. There is an intramedullary oneil with comminuted fracture of the proximal tibia. No hardware failure is noted. No joint effusion is noted. IMPRESSION: Comminuted fracture proximal tibia and proximal fibula. There is an intramedullary oneil in place. Hardware is intact. No joint effusion is noted.
--- NOTE | 2017-09-22 16:57 | RAD ---
Indication: Right ankle injury. 3 views of the right ankle demonstrates diffuse osteopenia surrounding the ankle joint. Intramedullary oneil is in place. No definite fracture is noted. No prior study is available for comparison. IMPRESSION: Intramedullary oneil in place. Diffuse osteopenia is present.
--- NOTE | 2017-09-22 16:58 | RAD ---
Indication: Lower leg injury. No prior study is available for comparison. 2 views of the right lower leg demonstrates a comminuted fracture of the proximal metadiaphysis of the tibia and proximal diaphysis of the fibula. There is an intramedullary oneil with multiple areas of hardware fixating. IMPRESSION: Comminuted fracture of the proximal tibia with intramedullary oneil in place. Fracture of the proximal fibula.
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
[2017-09-22 18:52] VITALS: BP 157/97
== END 2017-09-22 18:51 | disposition home or self-care (01) ==
LOC: ED 14:46
DX: S89.91XA Unspecified injury of right lower leg, initial encounter (principal); V49.50XA Passenger injured in collision with unspecified motor vehicles in traffic accident, initial encounter; Y92.410 Unspecified street and highway as the place of occurrence of the external cause
CPT/HCPCS: 99282